=== PATIENT | female | born 1940 | race Caucasian/White ===

== ENCOUNTER 2016-11-19 20:13 | Emergency (ER) | payer OTHER ==
[~2016-11-19] VITALS: Ht 160 cm; Wt 101.3 kg
[~2016-11-19 20:13] MED LIST: ALPR0.25 PO; ATOR-24 PO; CETI10TA84 PO; CLX20 PO; COEN150C PO; MULT-845 PO; OMEGCAP2 PO; PANT40TA PO; TYLER650 PO; [UNRECOGNIZED DRUG - CODE] IM
[2016-11-19 20:25] VITALS: Ht 160 cm; Wt 101.3 kg
[2016-11-19] MEDS ORDERED: KETOROLAC TROMETHAMINE 30 MG/ML VIAL IV STA (20:46)
[2016-11-19] MEDS ORDERED: ACETAMINOPHEN 500 MG TAB PO STA (20:46)
[2016-11-19] MEDS ORDERED: ONDANSETRON INJ 2 MG/ML 2 ML VIAL IV STA (20:46)
[2016-11-19] MEDS ORDERED: DiphenhydrAMINE HCL 50 MG/ML VIAL IV STA (20:46)
[2016-11-19] MEDS ORDERED: PROCHLORPERAZINE 5 MG/ML 2 ML VIAL IV STA (20:46)
[2016-11-19] MEDS ORDERED: ALBUTEROL HFA 8 GM INHALER INH ONE (21:00)
--- NOTE | 2016-11-19 21:11 | DIAGNOSTIC IMAGING REPORT ---
CHEST ONE VIEW PORTABLE CLINICAL HISTORY: Evaluate Fever/Sepsis COMPARISON STUDY: 05/04/2011 FINDINGS: Potential parenchymal left lower lobe infiltrate. Lungs otherwise appear clear. Diaphragms smooth. Calcifications are sharp. IMPRESSION: Patchy parenchymal infiltrate left lower lobe. The above report was generated using voice recognition software. It may contain grammatical, syntax or spelling errors. Electronically signed by: Rai Perez M.D. 11/19/2016 9:10 PM Dictated Date/Time: 11/19/2016 9:10 PM
[2016-11-19] MEDS ORDERED: LEVOFLOXACIN 250 MG TAB PO STA (21:17)
[2016-11-19] MEDS ORDERED: TYLOTC500 PO (21:20)
[2016-11-19] MEDS ORDERED: FLUT0.15 NAE (21:28)
[2016-11-19 21:45] LABS: BASO % 0.3 %; BASO ABS # 0.02 K/uL (0-0.2); COMPLETE YES; EOS % 1.1 %; HEMATOCRIT 38.9 % (37-47); IG% 0.2 %; LYMPH ABS # 1.07 K/uL (1.2-3.4); MEAN CELL VOLUME 89.2 fL (80-100); MEAN CORPUSCULAR HEMOGLOBIN 30.3 pg (25-34); MEAN CORPUSCULAR HGB CONC 33.9 g/dl (32-36); MEAN PLATELET VOLUME 10.6 fL (7.4-10.4); MONO % 11.9 %; NEUT % 69.5 %; PLATELET COUNT 144 K/uL (130-400); RED BLOOD COUNT 4.36 M/uL (4.2-5.4); WHITE BLOOD COUNT 6.28 K/uL (4.8-10.8)
--- NOTE | 2016-11-19 21:45 | EMERGENCY ROOM VISIT NOTE ---
History Report prepared by Red: Diana Hernandez Under the Supervision of: Dr. Judd Carlisle M.D. First contact with patient: 20:34 Chief Complaint: VOMITING Stated Complaint: PAIN, COUGH, VOMITING History of Present Illness The patient is a 76 year old female who presents to the Emergency Room with complaints of an episode of vomiting starting today. The patient states that she felt fine yesterday. 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 The patient complains of headache, fever, ear pain, neck pain, watering eyes, cough, and sore throat. She notes her headache is worse when she coughs. The patient notes it is difficult to take a deep breath. She notes she took Tylenol 8 hours ago and 3 hours ago. She notes that she took a Mucinex DM this morning. The patient denies urinary symptoms, history of hypertension, and being out of the country recently. The patient notes she used to get headaches whenever she was ill. Source of History: patient Onset: today Position: other (global) Quality: other (global) Timing: other (episode) Modifying Factors (Worsening): breathing (deep), other (cough) Associated Symptoms: + fevers, + headache, + sorethroat, + cough, + neck pain, No urinary symptoms Note: The patient complains of ear pain and watering eyes. The patient denies a history of hypertension and being out of the country recently. Review of Systems See HPI for pertinent positives & negatives. A total of 10 systems reviewed and were otherwise negative. Past Medical & Surgical Medical Problems: (1) Chronic Kidney Disease, Stage Iii (Moderate) (2) Esophageal Reflux (3) Hyperlipidemia Nec/Nos (4) Lumbosacral Neuritis Nos (5) Sciatica Social History Problems: (1) Acq Spondylolisthesis (2) History Of Tobacco Use Family History No pertinent family history Social History Smoking Status: Never Smoker Alcohol Use: none Marital Status: Housing Status: lives with family Occupation Status: retired Current/Historical Medications Scheduled Atorvastatin (Lipitor), 40 MG PO QPM Cetirizine (Zyrtec), 10 MG PO QAM Citalopram (Celexa *), 40 MG PO HS Fluticasone Propionate (Nasal) (Flonase Allergy Relief), 2 SPRAYS JOSE DAILY Levofloxacin (Levaquin), 750 MG PO QD@08 Multiple Vitamins W/ Minerals (Centrum Silver Adult 50+), 1 TAB PO QAM [place]-3 Fatty Acids (Fish Oil), 2 CAP PO QAM Pantoprazole (Protonix), 40 MG PO QAM Scheduled PRN Acetaminophen (Tylenol Arthitis Ext Rel), 650 MG PO Q8H PRN for Pain Acetaminophen (Tylenol), 500 MG PO Q4H PRN for Pain Alprazolam (Xanax), 1 TAB PO DAILY PRN for Anxiety Epinephrine Hcl (Epinephrine Hcl), 1 DOSE IM DIRECTED PRN for ALLERGIC REACTION Promethazine Hcl (Phenergan), 25 MG PO Q6H PRN for Nausea Allergies Coded Allergies: BEE STING (Verified Allergy, Unknown, SHOCK, 11/19/16) Codeine (Verified Allergy, Unknown, ITCHY, 11/19/16) Morphine (Verified Adverse Reaction, Intermediate, abd pain, 11/19/16) Oxycodone (Verified Adverse Reaction, Unknown, ABDOMINAL PAIN, ITCHING, 11/19/16) Physical Exam Vital Signs Date Time Temp Pulse Resp B/P (MAP) Pulse Ox O2 Delivery O2 Flow Rate FiO2 11/19/16 22:59 84 18 171/84 96 Room Air 11/19/16 22:23 Room Air 11/19/16 20:25 37.7 92 20 193/106 95 Room Air Physical Exam GENERAL: Patient is in no acute distress. HEENT: No acute trauma, normocephalic atraumatic, mucous membranes moist, mild nasal congestion, no scleral icterus. No throat erythema. TMs are clear bilaterally. NECK: No stridor, no adenopathy, no meningismus, trachea is midline. LUNGS: Clear to auscultation bilaterally, no wheeze, no rhonchi, breath sounds equal. Dry cough. HEART: Without murmurs gallops or rubs, regular rate and rhythm. ABDOMEN: Soft, nontender, bowel sounds positive, no hernias, no peritonitis. EXTREMITIES: No cyanosis or edema, full range of motion of all the joints without pain or difficulty, no signs for acute trauma. NEUROLOGIC: Oriented x 3, no acute motor or sensory deficits, no focal weakness. SKIN: No rash, no jaundice, no diaphoresis. Medical Decision & Procedures ER Provider Diagnostic Interpretation: Radiology results as stated below per my review and radiologist interpretation: HEAD WITHOUT CONTRAST (CT) CT DOSE: 687.98 mGy.cm HISTORY: Pain headache TECHNIQUE: Multiaxial CT images of the head were performed without the use of intravenous contrast. A dose lowering technique was utilized adhering to the principles of ALARA. Comparison: None. Findings: Moderate mucosal thickening of the ethmoid sinuses. All remaining sinuses are clear. The calvarium and skull base are intact. The ventricles and sulci are within normal limits. There is no mass, hematoma, midline shift, or acute infarct. Impression: No acute intracranial abnormality. Moderate mucosal thickening of the ethmoid sinuses The above report was generated using voice recognition software. It may contain grammatical, syntax or spelling errors. Electronically signed by: Rai Perez M.D. 11/19/2016 9:45 PM Dictated Date/Time: 11/19/2016 9:44 PM CHEST ONE VIEW PORTABLE CLINICAL HISTORY: Evaluate Fever/Sepsis COMPARISON STUDY: 05/04/2011 FINDINGS: Potential parenchymal left lower lobe infiltrate. Lungs otherwise appear clear. Diaphragms smooth. Calcifications are sharp. IMPRESSION: Patchy parenchymal infiltrate left lower lobe. The above report was generated using voice recognition software. It may contain grammatical, syntax or spelling errors. Electronically signed by: Rai Perez M.D. 11/19/2016 9:10 PM Dictated Date/Time: 11/19/2016 9:10 PM Laboratory Results 11/19/16 21:13 Red Blood Count 4.36, Mean Corpuscular Volume 89.2, Mean Corpuscular Hemoglobin 30.3, Mean Corpuscular Hemoglobin Concent 33.9, Mean Platelet Volume 10.6, Neutrophils (%) (Auto) 69.5, Lymphocytes (%) (Auto) 17.0, Monocytes (%) (Auto) 11.9, Eosinophils (%) (Auto) 1.1, Basophils (%) (Auto) 0.3, Neutrophils # (Auto ) 4.36, Lymphocytes # (Auto) 1.07, Monocytes # (Auto) 0.75, Eosinophils # (Auto ) 0.07, Basophils # (Auto) 0.02 11/19/16 21:13 Test 11/19/16 21:13 White Blood Count 6.28 K/uL (4.8-10.8) Red Blood Count 4.36 M/uL (4.2-5.4) Hemoglobin 13.2 g/dL (12.0-16.0) Hematocrit 38.9 % (37-47) Mean Corpuscular Volume 89.2 fL (80-100) Mean Corpuscular Hemoglobin 30.3 pg (25-34) Mean Corpuscular Hemoglobin Concent 33.9 g/dl (32-36) Platelet Count 144 K/uL (130-400) Mean Platelet Volume 10.6 fL (7.4-10.4) Neutrophils (%) (Auto) 69.5 % Lymphocytes (%) (Auto) 17.0 % Monocytes (%) (Auto) 11.9 % Eosinophils (%) (Auto) 1.1 % Basophils (%) (Auto) 0.3 % Neutrophils # (Auto) 4.36 K/uL (1.4-6.5) Lymphocytes # (Auto) 1.07 K/uL (1.2-3.4) Monocytes # (Auto) 0.75 K/uL (0.11-0.59) Eosinophils # (Auto) 0.07 K/uL (0-0.5) Basophils # (Auto) 0.02 K/uL (0-0.2) RDW Standard Deviation 41.6 fL (36.4-46.3) RDW Coefficient of Variation 12.9 % (11.5-14.5) Immature Granulocyte % (Auto) 0.2 % Immature Granulocyte # (Auto) 0.01 K/uL (0.00-0.02) Anion Gap 8.0 mmol/L (3-11) Est Creatinine Clear Calc Drug Dose 63.5 ml/min Estimated GFR () 75.5 Estimated GFR (Non- 65.2 BUN/Creatinine Ratio 25.5 (10-20) Lactic Acid Level 0.8 mmol/L (0.4-2.0) Calcium Level 9.3 mg/dl (8.5-10.1) Total Bilirubin 0.6 mg/dl (0.2-1) Aspartate Amino Transf (AST/SGOT) 25 U/L (15-37) Alanine Aminotransferase (ALT/SGPT) 26 U/L (12-78) Alkaline Phosphatase 81 U/L (45-117) Total Protein 7.3 gm/dl (6.4-8.2) Albumin 3.8 gm/dl (3.4-5.0) Globulin 3.5 gm/dl (2.5-4.0) Albumin/Globulin Ratio 1.1 (0.9-2) Laboratory results reviewed by me. Medications Administered Medications (Trade) Dose Ordered Sig/Brenda Route Start Time Stop Time Status Last Admin Dose Admin Ondansetron HCl (Zofran Inj) 4 mg NOW STAT IV 11/19/16 20:46 11/19/16 20:50 DC 11/19/16 21:07 4 MG Ketorolac Tromethamine (Toradol Inj) 30 mg NOW STAT IV 11/19/16 20:46 11/19/16 20:50 DC 11/19/16 21:08 30 MG Acetaminophen (Tylenol Tab) 1,000 mg NOW STAT PO 11/19/16 20:46 11/19/16 20:50 DC 11/19/16 21:08 1,000 MG Prochlorperazine Edisylate (Compazine Inj) 5 mg NOW STAT IV 11/19/16 20:46 11/19/16 20:50 DC 11/19/16 21:07 5 MG Diphenhydramine HCl (Benadryl Inj) 25 mg NOW STAT IV 11/19/16 20:46 11/19/16 20:50 DC 11/19/16 21:07 25 MG Albuterol (Ventolin Hfa Inhaler) 3 puffs NOW ONCE INH 11/19/16 21:00 11/19/16 21:01 DC 11/19/16 21:08 3 PUFFS Levofloxacin (Levaquin Tab) 750 mg NOW STAT PO 11/19/16 21:17 11/19/16 21:18 DC 11/19/16 21:17 750 MG ED Course 2044: The patient was evaluated in room C4. A complete history and physical exam was performed. 2045: Ordered Benadryl Inj 25 mg IV, Compazine Inj 5 mg IV, Tylenol Tab 1000 mg PO, Toradol Inj 30 mg IV, Zofran Inj 4 mg IV. 2099: Ordered Albuterol 3 puffs INH. 2116: Ordered Levofloxacin 750 mg PO. 2307: Reevaluated the patient. Discussed results and discharge instructions: she verbalized understanding and agreement. The patient is ready for discharge. Medical Decision Differential diagnoses include bronchitis, pneumonia, meningitis, dehydration, pharyngitis, otitis media, viral illness, intracranial bleeding. There is no leukocytosis or concerning anemia. No significant electrolyte abnormality, kidney failure or hepatitis. Lactic acid level is not elevated making sepsis less likely. Blood cultures are pending. Brain CT shows no acute bleed or mass effect. Chest x-ray shows a potential left lower lobe infiltrate. On exam, the patient did not have meningismus, she was not toxic or hypoxic. The patient received oral Tylenol, IV Toradol. She received IV saline. She was given IV Compazine and IV Benadryl. She received IV Zofran and a dose of oral Levaquin. The patient was given albuterol via MDI. The patient feels markedly better. I do think she can be discharged. I think this pneumonia has caused all her symptoms. The headache is from the illness itself and from her coughing. The patient's blood pressure was elevated here, it did come down somewhat when her symptoms were controlled. She is going to follow with her doctors office for a blood pressure recheck. The patient was encouraged to return if feeling worse. She was discharged in stable condition. Medication Reconcilliation Current Medication List: was personally reviewed by me Blood Pressure Screening Patient's blood pressure: Elevated blood pressure Blood pressure disposition: Referred to PCP Impression Primary Impression: Pneumonia Additional Impressions: Headache Vomiting Scribe Attestation The scribe's documentation has been prepared under my direction and personally reviewed by me in its entirety. I confirm that the note above accurately reflects all work, treatment, procedures, and medical decision making performed by me. Departure Information Dispostion Home / Self-Care Prescriptions Promethazine Hcl (Phenergan) 25 Mg Tab 25 MG PO Q6H Y for Nausea, #15 TAB Prov: Judd Carlisle M.D. 11/19/16 Levofloxacin (Levaquin) 750 Mg Tab 750 MG PO QD@08, #5 TAB Prov: Judd Carlisle M.D. 11/19/16 Referrals Carmelina Shelley D.O. (PCP) Forms HOME CARE DOCUMENTATION FORM, IMPORTANT VISIT INFORMATION Patient Instructions My [facility] [address] Additional Instructions levaquin daily for 5 more days phenergan 1 tab as needed for nausea every 6 hours albuterol 3 puffs every 6 hours for the cough and breathing rest fluids tylenol and or motrin for fever and pain see alcides nur this week for recheck and blood pressure recheck return if worsening or not improving as we discussed Problem Qualifiers
[2016-11-19 21:54] LABS: BUN/CREATININE RATIO 25.5 (10-20); CALCIUM 9.3 mg/dl (8.5-10.1); CREATININE 0.87 mg/dl (0.60-1.20); POTASSIUM 3.8 mmol/L (3.5-5.1)
[2016-11-19 21:56] LABS: ALB/GLOB RATIO 1.1 (0.9-2)
[2016-11-19] MEDS ORDERED: PROM25TA9 PO (23:15)
[2016-11-19] MEDS ORDERED: LEVO1TAB35 PO (23:15)
[2016-11-19 23:41] VITALS: BP 155/86; PULSE 84; TEMP 37.1; O2SAT 98
[2016-12-08] MEDS ORDERED: DXY100 PO (10:50)
[2016-12-08] MEDS ORDERED: PRED10TA PO (10:50)
== END 2016-11-19 23:42 | disposition home or self-care (01) ==
LOC: C.EDB 20:14 → C.EDC 23:42
DX: J18.9 Pneumonia, unspecified organism (principal); R51 Headache; R11.10 Vomiting, unspecified; E78.5 Hyperlipidemia, unspecified; N18.3 Chronic kidney disease, stage 3 (moderate); K21.9 Gastro-esophageal reflux disease without esophagitis; Z87.891 Personal history of nicotine dependence; Z79.899 Other long term (current) drug therapy; Z88.5 Allergy status to narcotic agent; Z91.030 Bee allergy status

== ENCOUNTER 2016-12-05 12:34 | Inpatient (IN) | payer OTHER ==
[2016-12-05] VITALS (7 sets, daily range): BP systolic 123–144; BP diastolic 64–80; PULSE 75–84; TEMP 36.5–36.9; O2SAT 94–96; Ht 160 cm; Wt 74.3 kg
[~2016-12-05] VITALS: Ht 160 cm; Wt 74.3 kg
[~2016-12-05 12:34] MED LIST changes: -COEN150C PO; +FLUT0.15 NAE; +LEVO1TAB35 PO; +PROM25TA9 PO; +TYLOTC500 PO
[2016-12-05] MEDS ORDERED: SODIUM CHLORIDE 0.9% 1000ML 1,000 ML IV STA (12:52)
[2016-12-05] MEDS ORDERED: CITA40TA12 PO (13:04)
[2016-12-05] MEDS ORDERED: PRED10TA PO (13:06)
[2016-12-05] MEDS ORDERED: ALBUT/IPRATROP 3MG/0.5MG NEB 3 ML VIAL INH STA ×2 (13:23→14:48)
[2016-12-05 13:48] LABS: BASO % 0.2 %; BASO ABS # 0.03 K/uL (0-0.2); COMPLETE YES; EOS % 4.6 %; HEMATOCRIT 42.2 % (37-47); IG% 0.3 %; LYMPH % 29.4 %; LYMPH ABS # 3.73 K/uL (1.2-3.4); MEAN CELL VOLUME 90.4 fL (80-100); MEAN CORPUSCULAR HEMOGLOBIN 30.6 pg (25-34); MEAN CORPUSCULAR HGB CONC 33.9 g/dl (32-36); MEAN PLATELET VOLUME 10.7 fL (7.4-10.4); MONO % 10.4 %; NEUT % 55.1 %; PLATELET COUNT 218 K/uL (130-400); RED BLOOD COUNT 4.67 M/uL (4.2-5.4)
--- NOTE | 2016-12-05 13:55 | DIAGNOSTIC IMAGING REPORT ---
CHEST ONE VIEW PORTABLE CLINICAL HISTORY: EVALUATE WEAKNESS dyspnea COMPARISON STUDY: 11/19/2016 FINDINGS: The bones soft tissues and hemidiaphragms are normal. The cardiomediastinal silhouette is normal. The lungs are clear. The pulmonary vasculature is normal. Lungs are now considered clear. Infiltrate left base has resolved. IMPRESSION: Negative chest. The lungs are clear. The above report was generated using voice recognition software. It may contain grammatical, syntax or spelling errors. Electronically signed by: Rai Perez M.D. 12/05/2016 1:54 PM Dictated Date/Time: 12/05/2016 1:53 PM
[2016-12-05 13:57] LABS: PARTIAL THROMBOPLASTIN RATIO 0.9; PROTHROMBIN TIME (PATIENT) 10.3 SECONDS (9.0-12.0)
[2016-12-05 14:06] LABS: ALT/SGPT 25 U/L (12-78); AST/SGOT 16 U/L (15-37); BLOOD UREA NITROGEN 28 mg/dl (7-18); BUN/CREATININE RATIO 21.9 (10-20); CALCIUM 9.3 mg/dl (8.5-10.1); CARBON DIOXIDE 30 mmol/L (21-32); CHLORIDE 105 mmol/L (98-107); GLUCOSE 97 mg/dl (70-99); SODIUM 142 mmol/L (136-145)
[2016-12-05 14:17] LABS: ALKALINE PHOSPHATASE 76 U/L (45-117); CKMB/CK RATIO 1.9 (0-3.0)
[2016-12-05] MEDS ORDERED: DOXYCYCLINE IV 100 MG in DEXTROSE 5% 100ML 100 ML IV STA (14:48)
[2016-12-05] MEDS ORDERED: METHYLPREDNISOLONE 125 MG VIAL IV STA (14:48)
--- NOTE | 2016-12-05 15:19 | EMERGENCY ROOM VISIT NOTE ---
History Report prepared by Red: Michelle Parikh Under the Supervision of: Dr. Arnold Pearce M.D. First contact with patient: 12:52 Chief Complaint: PALPITATIONS Stated Complaint: HEART PALPITATIONS History of Present Illness The patient is a 76 year old female who presents to the Emergency Room with complaints of persistent heart palpitations that began three days ago. The patient reports that on November 19 she was diagnosed with pneumonia, noting that she was placed on antibiotics, a nebulizer, and Prednisone for her symptoms. She states that she stopped the nebulizer treatments because they made her feel wired. The patient states that she currently feels like she has a buzz. She additionally associates shortness of breath, wheezing, and a cough today, but states that her shortness of breath has slightly improved. The patient states that her breathing is still labored. She states that she quit smoking in the . Pt denies LOC, headache, fevers, chills, diaphoresis, visual changes, neck pain, chest pain, nausea, vomiting, abdominal pain, back pain, melena, hematochezia, urinary symptoms, numbness, weakness, lymphadenopathy, rash, or other complaints. Source of History: patient Onset: three days ago Position: other (heart) Quality: other (palpitations) Timing: other (persistent) Associated Symptoms: + cough, + SOB Note: Associated Symptoms: wheezing Review of Systems See HPI for pertinent positives and negatives. A total of ten systems were reviewed and were otherwise negative. Past Medical & Surgical Medical Problems: (1) Chronic Kidney Disease, Stage Iii (Moderate) (2) Esophageal Reflux (3) Hyperlipidemia Nec/Nos (4) Lumbosacral Neuritis Nos (5) Sciatica Social History Problems: (1) Acq Spondylolisthesis (2) History Of Tobacco Use Family History No pertinent family history Social History Smoking Status: Former Smoker Alcohol Use: none Marital Status: Housing Status: lives with family Occupation Status: retired Current/Historical Medications Scheduled Atorvastatin (Lipitor), 40 MG PO QPM Cetirizine (Zyrtec), 10 MG PO QAM Citalopram Hydrobromide (Celexa), 40 MG PO DAILY Fluticasone Propionate (Nasal) (Flonase Allergy Relief), 2 SPRAYS JOSE DAILY Multiple Vitamins W/ Minerals (Centrum Silver Adult 50+), 1 TAB PO QAM [place]-3 Fatty Acids (Fish Oil), 2 CAP PO QAM Pantoprazole (Protonix), 40 MG PO QAM Prednisone Tab (Prednisone), 10 MG PO UD Scheduled PRN Acetaminophen (Tylenol Arthitis Ext Rel), 650 MG PO QAM PRN for Pain Acetaminophen (Tylenol), 500 MG PO HS PRN for Pain Alprazolam (Xanax), 1 TAB PO DAILY PRN for Anxiety Epinephrine Hcl (Epinephrine Hcl), 1 DOSE IM DIRECTED PRN for ALLERGIC REACTION Allergies Coded Allergies: BEE STING (Verified Allergy, Unknown, SHOCK, 12/05/16) Codeine (Verified Allergy, Unknown, ITCHY, 12/05/16) Morphine (Verified Adverse Reaction, Intermediate, abd pain, 12/05/16) Oxycodone (Verified Adverse Reaction, Unknown, ABDOMINAL PAIN, ITCHING, ) Physical Exam Vital Signs Date Time Temp Pulse Resp B/P (MAP) Pulse Ox O2 Delivery O2 Flow Rate FiO2 12/05/16 15:01 89 Room Air 12/05/16 14:19 72 20 113/55 92 Room Air 12/05/16 12:54 97 Room Air 12/05/16 12:48 104 12/05/16 12:45 97 Room Air 12/05/16 12:38 37.1 86 22 125/80 96 Room Air Physical Exam GENERAL: Awake, alert, well-appearing, in no distress HENT: Normocephalic, atraumatic. Oropharynx unremarkable. EYES: Normal conjunctiva. Sclera non-icteric. NECK: Supple. No nuchal rigidity. FROM. No JVD. RESPIRATORY: Rhonchi and a few wheezes bilaterally. Frequent cough present. CARDIAC: Regular rate, normal rhythm. Extremities warm and well perfused. Pulses equal. ABDOMEN: Soft, non-distended. No tenderness to palpation. No rebound or guarding. No masses. RECTAL: Deferred. MUSCULOSKELETAL: Chest examination reveals no tenderness. The back is symmetrical on inspection without obvious abnormality. There is no CVA tenderness to palpation. No joint edema. LOWER EXTREMITIES: Calves are equal size bilaterally and non-tender. No edema. No discoloration. NEURO: Normal sensorium. No sensory or motor deficits noted. SKIN: No rash or jaundice noted. Medical Decision & Procedures ER Provider Diagnostic Interpretation: X-ray: Per my interpretation, radiologist review. CHEST ONE VIEW PORTABLE CLINICAL HISTORY: EVALUATE WEAKNESS dyspnea COMPARISON STUDY: 11/19/2016 FINDINGS: The bones soft tissues and hemidiaphragms are normal. The cardiomediastinal silhouette is normal. The lungs are clear. The pulmonary vasculature is normal. Lungs are now considered clear. Infiltrate left base has resolved. IMPRESSION: Negative chest. The lungs are clear. The above report was generated using voice recognition software. It may contain grammatical, syntax or spelling errors. Electronically signed by: Rai Perez M.D. 12/05/2016 1:54 PM Dictated Date/Time: 12/05/2016 1:53 PM Laboratory Results 12/05/16 13:30 Red Blood Count 4.67, Mean Corpuscular Volume 90.4, Mean Corpuscular Hemoglobin 30.6, Mean Corpuscular Hemoglobin Concent 33.9, Mean Platelet Volume 10.7, Neutrophils (%) (Auto) 55.1, Lymphocytes (%) (Auto) 29.4, Monocytes (%) (Auto) 10.4, Eosinophils (%) (Auto) 4.6, Basophils (%) (Auto) 0.2, Neutrophils # (Auto ) 6.99, Lymphocytes # (Auto) 3.73, Monocytes # (Auto) 1.32, Eosinophils # (Auto ) 0.59, Basophils # (Auto) 0.03 12/05/16 13:30 Test 12/05/16 13:30 12/05/16 13:41 White Blood Count 12.70 K/uL (4.8-10.8) Red Blood Count 4.67 M/uL (4.2-5.4) Hemoglobin 14.3 g/dL (12.0-16.0) Hematocrit 42.2 % (37-47) Mean Corpuscular Volume 90.4 fL (80-100) Mean Corpuscular Hemoglobin 30.6 pg (25-34) Mean Corpuscular Hemoglobin Concent 33.9 g/dl (32-36) Platelet Count 218 K/uL (130-400) Mean Platelet Volume 10.7 fL (7.4-10.4) Neutrophils (%) (Auto) 55.1 % Lymphocytes (%) (Auto) 29.4 % Monocytes (%) (Auto) 10.4 % Eosinophils (%) (Auto) 4.6 % Basophils (%) (Auto) 0.2 % Neutrophils # (Auto) 6.99 K/uL (1.4-6.5) Lymphocytes # (Auto) 3.73 K/uL (1.2-3.4) Monocytes # (Auto) 1.32 K/uL (0.11-0.59) Eosinophils # (Auto) 0.59 K/uL (0-0.5) Basophils # (Auto) 0.03 K/uL (0-0.2) RDW Standard Deviation 43.9 fL (36.4-46.3) RDW Coefficient of Variation 13.5 % (11.5-14.5) Immature Granulocyte % (Auto) 0.3 % Immature Granulocyte # (Auto) 0.04 K/uL (0.00-0.02) Prothrombin Time 10.3 SECONDS (9.0-12.0) Prothromb Time International Ratio 1.0 (0.9-1.1) Activated Partial Thromboplast Time 23.2 SECONDS (21.0-31.0) Partial Thromboplastin Ratio 0.9 Anion Gap 7.0 mmol/L (3-11) Est Creatinine Clear Calc Drug Dose 42.2 ml/min Estimated GFR () 46.5 Estimated GFR (Non- 40.1 BUN/Creatinine Ratio 21.9 (10-20) Calcium Level 9.3 mg/dl (8.5-10.1) Magnesium Level 2.0 mg/dl (1.8-2.4) Total Bilirubin 0.7 mg/dl (0.2-1) Direct Bilirubin < 0.1 mg/dl (0-0.2) Aspartate Amino Transf (AST/SGOT) 16 U/L (15-37) Alanine Aminotransferase (ALT/SGPT) 25 U/L (12-78) Alkaline Phosphatase 76 U/L (45-117) Total Creatine Kinase 53 U/L (26-192) Creatine Kinase MB 1.0 ng/ml (0.5-3.6) Creatine Kinase MB Ratio 1.9 (0-3.0) Troponin I < 0.015 ng/ml (0-0.045) Total Protein 7.1 gm/dl (6.4-8.2) Albumin 3.7 gm/dl (3.4-5.0) Thyroid Stimulating Hormone (TSH) 1.130 uIu/ml (0.300-4.500) Bedside Lactic Acid Venous 0.97 mmol/L (0.90-1.70) Laboratory results reviewed by me Medications Administered Medications (Trade) Dose Ordered Sig/Brenda Route Start Time Stop Time Status Last Admin Dose Admin Sodium Chloride 1,000 ml @ 125 mls/hr Q8H STAT IV 12/05/16 12:52 12/05/16 20:51 12/05/16 14:01 125 MLS/HR Albuterol/ Ipratropium (Duoneb) 3 ml NOW STAT INH 12/05/16 13:23 12/05/16 13:24 DC 12/05/16 14:02 3 ML Albuterol/ Ipratropium (Duoneb) 3 ml NOW STAT INH 12/05/16 14:48 12/05/16 14:56 DC 12/05/16 15:03 3 ML Doxycycline Hyclate 100 mg/ Dextrose 110 ml @ 50 mls/hr NOW STAT IV 12/05/16 14:48 12/05/16 16:59 12/05/16 15:12 50 MLS/HR Methylprednisolone Sodium Succinate (Solu-Medrol IV) 125 mg NOW STAT IV 12/05/16 14:48 12/05/16 14:56 DC 12/05/16 15:03 125 MG ECG Indication: palpitations Rate (beats per minute): 88 Rhythm: normal sinus Findings: Q waves (Inferior), no acute ischemic change, no ectopy ED Course 1252: Ordered Sodium Chloride 1000 mL @ 125 mls/hr IV. 1317: The patient was evaluated in room C12B. A complete history and physical exam was performed. 1323: Ordered DuoNeb 3 ml INH. 1406: I reevaluated the patient and she is feeling slightly feeling better after the breathing treatment. 1500: The patient was evaluated again. Her cough. Present. She was found to have mild hypoxia. She had oxygen initiated, IV doxycycline, IV Solu-Medrol, and a second DuoNeb ordered. I discussed further evaluation and management in the hospital.I gave my usual and customary discussion regarding this issue. 1504: Consulted with internal medicine 1513: Discussed the case with Ousmane Rivas PA-C Medical Decision Triage Nursing notes reviewed. The patient's presentation and history were concerning for respiratory symptoms. Etiologies such as pneumonia, COPD, reactive airway disease, CHF, cardiac ischemia, pulmonary embolism, pneumothorax, musculoskeletal, infections, gastrointestinal, as well as others were entertained. Patient was evaluated. She had a heavy cough present. She had rhonchi on examination. The patient had an IV established. Blood work was obtained. ECG did not show any ischemic issues cardiac monitoring did not reveal any significant ectopy or dysrhythmia. Her CBC showed mild leukocytosis. Chemistry panel was unremarkable. Cardiac markers negative. Her chest x-ray seemed to be somewhat improved compared to prior. On reassessment the patient was still feeling about the same. The patient was educated. She does not use oxygen at home. She has had a mild hypoxia noted. Supplemental oxygen was given. The patient had a second nebulizer treatment and a dose of Solu-Medrol given. IV doxycycline administered. The patient had a consultation placed with internal medicine. The patient was evaluated by the hospitalist service for further management. Medication Reconcilliation Current Medication List: was personally reviewed by me Blood Pressure Screening Patient's blood pressure: Elevated blood pressure Blood pressure disposition: Elevated BP felt to be situational, Did not require urgent referral Consults Time Called: 1504 Consulting Physician: Di Rivas PA-C Returned Call: [phone] Discussed case of the patient's history and physical and findings. She is failing outpatient management. The patient will be evaluated for further management by the hospitalist service. Impression Primary Impression: Cough Additional Impression: Shortness of breath Scribe Attestation The scribe's documentation has been prepared under my direction and personally reviewed by me in its entirety. I confirm that the note above accurately reflects all work, treatment, procedures, and medical decision making performed by me. Departure Information Dispostion Being Evaluated By Hospitalist Referrals Carmelina Shelley D.O. (PCP) Patient Instructions My [facility] Problem Qualifiers
[2016-12-05] MEDS ORDERED: ACETAMINOPHEN 650 MG PO PRN (17:00)
--- NOTE | 2016-12-05 17:04 | History and Physical ---
History & Physical Date & Time of Service: Dec 05, 2016 at 17:04 Chief Complaint: Cough,Sob Primary Care Physician: Carmelina Shelley D.O. 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 -mentions of a lot of sick contacts with children with URI symptom denies of any chest pain , having episodes of palpitation with duo neb tx Family History No pertinent family history Social History Smoking Status: Former Smoker Marital Status: Housing status: lives alone Occupational Status: retired Immunizations History of Influenza Vaccine: Yes History of Tetanus Vaccine?: Yes History of Pneumococcal: No History of Hepatitis B Vaccine: No Allergies Coded Allergies: BEE STING (Verified Allergy, Unknown, SHOCK, 12/05/16) Codeine (Verified Allergy, Unknown, ITCHY, 12/05/16) Morphine (Verified Adverse Reaction, Intermediate, abd pain, 12/05/16) Oxycodone (Verified Adverse Reaction, Unknown, ABDOMINAL PAIN, ITCHING, ) Home Medications Scheduled Atorvastatin (Lipitor), 40 MG PO QPM Cetirizine (Zyrtec), 10 MG PO QAM Citalopram Hydrobromide (Celexa), 40 MG PO DAILY Fluticasone Propionate (Nasal) (Flonase Allergy Relief), 2 SPRAYS JOSE DAILY Multiple Vitamins W/ Minerals (Centrum Silver Adult 50+), 1 TAB PO QAM Wheeler-3 Fatty Acids (Fish Oil), 2 CAP PO QAM Pantoprazole (Protonix), 40 MG PO QAM Prednisone Tab (Prednisone), 10 MG PO UD Scheduled PRN Acetaminophen (Tylenol Arthitis Ext Rel), 650 MG PO QAM PRN for Pain Acetaminophen (Tylenol), 500 MG PO HS PRN for Pain Alprazolam (Xanax), 1 TAB PO DAILY PRN for Anxiety Epinephrine Hcl (Epinephrine Hcl), 1 DOSE IM DIRECTED PRN for ALLERGIC REACTION Review of Systems Constitutional: + fever, + chills, + sweats, + weakness, + fatigue Respiratory: + cough, + sputum, + shortness of breath, + dyspnea on exertion, + dyspnea at rest Musculoskeletal: + muscle pain Neurologic: + weakness, + numbness/tingling Endocrine: + fatigue Physical Exam Vital Signs Date Time Temp Pulse Resp B/P (MAP) Pulse Ox O2 Delivery O2 Flow Rate FiO2 12/05/16 16:13 37.1 85 18 116/54 98 12/05/16 15:59 85 18 116/54 98 Nasal Cannula 2.0 12/05/16 15:26 98 Nasal Cannula 2.0 12/05/16 15:01 89 Room Air 12/05/16 14:19 72 20 113/55 92 Room Air 12/05/16 12:54 97 Room Air 12/05/16 12:48 104 12/05/16 12:45 97 Room Air 12/05/16 12:38 37.1 86 22 125/80 96 Room Air General Appearance: no apparent distress Neck: supple, no JVD Respiratory/Chest: no respiratory distress, + decreased breath sounds Cardiovascular: regular rate, rhythm, no edema Abdomen/GI: normal bowel sounds, non tender, soft Back: no CVA tenderness Extremities/Musculoskelatal: normal capillary refill, no pedal edema Neurologic/Psych: alert, normal mood/affect Skin: normal color, warm/dry, no rash Diagnostics Laboratory Results Results Past 24 Hours Test 12/05/16 13:30 12/05/16 13:41 Range/Units White Blood Count 12.70 4.8-10.8 K/uL Red Blood Count 4.67 4.2-5.4 M/uL Hemoglobin 14.3 12.0-16.0 g/dL Hematocrit 42.2 37-47 % Mean Corpuscular Volume 90.4 80-100 fL Mean Corpuscular Hemoglobin 30.6 25-34 pg Mean Corpuscular Hemoglobin Concent 33.9 32-36 g/dl Platelet Count 218 130-400 K/uL Mean Platelet Volume 10.7 7.4-10.4 fL Neutrophils (%) (Auto) 55.1 % Lymphocytes (%) (Auto) 29.4 % Monocytes (%) (Auto) 10.4 % Eosinophils (%) (Auto) 4.6 % Basophils (%) (Auto) 0.2 % Neutrophils # (Auto) 6.99 1.4-6.5 K/uL Lymphocytes # (Auto) 3.73 1.2-3.4 K/uL Monocytes # (Auto) 1.32 0.11-0.59 K/uL Eosinophils # (Auto) 0.59 0-0.5 K/uL Basophils # (Auto) 0.03 0-0.2 K/uL RDW Standard Deviation 43.9 36.4-46.3 fL RDW Coefficient of Variation 13.5 11.5-14.5 % Immature Granulocyte % (Auto) 0.3 % Immature Granulocyte # (Auto) 0.04 0.00-0.02 K/uL Prothrombin Time 10.3 9.0-12.0 SECONDS Prothromb Time International Ratio 1.0 0.9-1.1 Activated Partial Thromboplast Time 23.2 21.0-31.0 SECONDS Partial Thromboplastin Ratio 0.9 Sodium Level 142 136-145 mmol/L Potassium Level 4.0 3.5-5.1 mmol/L Chloride Level 105 98-107 mmol/L Carbon Dioxide Level 30 21-32 mmol/L Anion Gap 7.0 3-11 mmol/L Blood Urea Nitrogen 28 7-18 mg/dl Creatinine 1.30 0.60-1.20 mg/dl Est Creatinine Clear Calc Drug Dose 42.2 ml/min Estimated GFR () 46.5 Estimated GFR (Non- 40.1 BUN/Creatinine Ratio 21.9 10-20 Random Glucose 97 70-99 mg/dl Calcium Level 9.3 8.5-10.1 mg/dl Magnesium Level 2.0 1.8-2.4 mg/dl Total Bilirubin 0.7 0.2-1 mg/dl Direct Bilirubin < 0.1 0-0.2 mg/dl Aspartate Amino Transf (AST/SGOT) 16 15-37 U/L Alanine Aminotransferase (ALT/SGPT) 25 12-78 U/L Alkaline Phosphatase 76 45-117 U/L Total Creatine Kinase 53 26-192 U/L Creatine Kinase MB 1.0 0.5-3.6 ng/ml Creatine Kinase MB Ratio 1.9 0-3.0 Troponin I < 0.015 0-0.045 ng/ml Total Protein 7.1 6.4-8.2 gm/dl Albumin 3.7 3.4-5.0 gm/dl Thyroid Stimulating Hormone (TSH) 1.130 0.300-4.500 uIu/ml Bedside Lactic Acid Venous 0.97 0.90-1.70 mmol/L Microbiology Results 12/05/16 Blood Culture, Received Pending 12/05/16 Blood Culture, Received Pending CXR normal Normal EKG Impression Assessment and Plan COPD EXACERBATION : presented with ongoing symptom of cough , SOB , weakness for > 2 weeks failed out pt tx Cxray shows no infiltrate , ordered for Flu titer SOB now much better after neb tx and IV steroids plan to transition to PO Prednisone as no audible wheeze noted monitor requiring supplemental 02 ( was not on home 02 ) on empiric Abx with Doxycycline Neb tx changed to Xoponex as pt mentions of feeling jittery /palpitation with duo neb tx pulmonology eval requested BOBY : cr elevated 1.3 ( was 0.9 on 11/19/16 ) due to dehydration , poor PO intake ordered for IVF NSS @100 repeat PRP in AM avoid NSAID's FULL CODE DVT PROPHYLAXIS : sub q heparin DISPOSITION : expected to be discharged home when medically stable Level of Care Med/Surg Resuscitation Status FULL RESUSCITATION VTE Prophylaxis VTE Risk Assessment Done? Y/N: Yes Risk Level: Moderate Given or contraindicated: Unfractionated heparin SQ Additional Copies To Carmelina Shelley D.O.
[2016-12-05] MEDS ORDERED: MAGNESIUM HYDROXIDE SUSP 30 ML UDC PO PRN (17:15)
[2016-12-05] MEDS ORDERED: ZOLPIDEM TARTRATE 5 MG TAB PO PRN (17:15)
[2016-12-05] MEDS ORDERED: ALUMINUM/MAGNESIUM/SIMETH (MAALOX MAX) 30 ML UDC PO PRN (17:15)
[2016-12-05] MEDS ORDERED: POLYETHYLENE (MIRALAX) 17 GM PACK PO PRN (17:15)
[2016-12-05] MEDS ORDERED: ONDANSETRON INJ 2 MG/ML 2 ML VIAL IV PRN (17:15)
[2016-12-05] MEDS ORDERED: ALBUT/IPRATROP 3MG/0.5MG NEB 3 ML VIAL INH PRN (17:30)
[2016-12-05] MEDS: SODIUM CHLORIDE 0.9% 1000ML 1,000 ML IV SCH (18:13)
[2016-12-05] MEDS ORDERED: ALBUT/IPRATROP 3MG/0.5MG NEB 3 ML VIAL INH SCH (20:00)
[2016-12-05] MEDS ORDERED: INFLUENZA ADMINISTRATION CHARGE ONE (20:30)
[2016-12-05] MEDS ORDERED: INFLUENZA VACCINE HIGH DOSE 65+ 0.5 ML SYR IM. ONE (20:30)
[2016-12-05] MEDS: ATORVASTATIN 40 MG TAB PO SCH (21:41)
[2016-12-05] MEDS: HEPARIN SOD 5000 UNIT/0.5 ML CARP SQ SCH (21:44)
[2016-12-05] MEDS ORDERED: METHYLPREDNISOLONE IV 40 MG in SYRINGE 0 ML IV SCH (22:00)
[2016-12-05] MEDS ORDERED: LORAZEPAM 0.5 MG TAB PO PRN (22:15)
[2016-12-05] MEDS: ACETAMINOPHEN 325 MG TAB PO PRN (23:39)
[2016-12-06] VITALS (12 sets, daily range): BP systolic 138–160; BP diastolic 73–86; PULSE 77–103; TEMP 36.5–36.7; O2SAT 92–98
[2016-12-06] MEDS ORDERED: LEVALBUTEROL/IPRATROPIUM NEB INH SCH
[2016-12-06] MEDS: LEVALBUTEROL 1.25MG/0.5ML NEB INH SCH ×4 (01:41→19:46)
[2016-12-06] MEDS: IPRATROPIUM BROMIDE NEB SOLN 0.02% 2.5 ML VIAL INH SCH ×4 (01:41→19:46)
[2016-12-06] MEDS: SODIUM CHLORIDE 0.9% 1000ML 1,000 ML IV SCH (03:30)
[2016-12-06] MEDS: ALPRAZOLAM 0.25 MG TAB PO PRN (03:30)
[2016-12-06] MEDS: ACETAMINOPHEN 325 MG TAB PO PRN ×3 (03:33→21:32)
[2016-12-06] MEDS: DOXYCYCLINE IV 100 MG in DEXTROSE 5% 100ML 100 ML IV SCH ×2 (03:52→15:33)
[2016-12-06] MEDS: HEPARIN SOD 5000 UNIT/0.5 ML CARP SQ SCH ×3 (05:48→21:43)
[2016-12-06] MEDS: FLUTICASONE PROPIONATE NA SPR 16 GM BTL SCH (08:46)
[2016-12-06] MEDS: CEROVITE ADV FORMULA TAB PO SCH (08:47)
[2016-12-06] MEDS: PANTOprazole SOD 40 MG TAB PO SCH (08:47)
[2016-12-06] MEDS: CITALOPRAM 40 MG TAB PO SCH (08:48)
[2016-12-06] MEDS: CETIRIZINE HCL 10 MG TAB PO SCH (08:48)
[2016-12-06] MEDS: OMEGA-3 (PURIFIED FISH OIL) 1 GM CAP PO SCH (08:48)
[2016-12-06] MEDS: FLUTICASONE PROPIONATE NA SPR 16 GM BTL NAE SCH (09:00)
[2016-12-06 10:08] LABS: HEMATOCRIT 38.9 % (37-47); MEAN CELL VOLUME 89.4 fL (80-100); MEAN CORPUSCULAR HEMOGLOBIN 29.9 pg (25-34); MEAN CORPUSCULAR HGB CONC 33.4 g/dl (32-36); MEAN PLATELET VOLUME 10.4 fL (7.4-10.4); PLATELET COUNT 167 K/uL (130-400); RED BLOOD COUNT 4.35 M/uL (4.2-5.4); WHITE BLOOD COUNT 8.54 K/uL (4.8-10.8)
[2016-12-06] MEDS ORDERED: NURSING VERBAL MED ORDER ONE (10:15)
[2016-12-06 10:33] LABS: BUN/CREATININE RATIO 28.8 (10-20); CALCIUM 8.7 mg/dl (8.5-10.1); CREATININE 0.99 mg/dl (0.60-1.20); POTASSIUM 4.1 mmol/L (3.5-5.1)
[2016-12-06] MEDS: LACTOBACILLUS ACIDOPHILUS (FLORANEX) TAB PO SCH ×2 (12:07→16:41)
--- NOTE | 2016-12-06 12:09 | Progress Note ---
Internal Med Progress Note Date of Service: Dec 06, 2016. Provider Documentation: SUBJECTIVE: Seen and examined at bedside States SOB/wheezing is better denies chest pain Has intermittent dy cough Offers no other complaints OBJECTIVE: Vital Signs-as noted below Physical Exam: General Appearance:Obese, no apparent distress Head: normocephalic, Atraumatic Eyes: normal inspection, EOMI, PERRL Neck: supple, Trachea midline Respiratory/Chest: Normal breath sounds, mild basal creps Cardiovascular: S1, S2, No murmur Abdomen/GI:Soft, Non tender, Bowel sounds present Extremities/Musculoskelatal:normal inspection, no edema Neurologic/Psych:grossly no focal neurological deficits Skin: normal color, warm Lab data as noted below. ASSESSMENT & PLAN: Post infectious bronchitis: presented with ongoing symptom of cough , SOB , weakness for > 2 weeks CXR: no infiltrate Flu titer pending Continue Xopenex, Flonase, PPI for GERD rhinitis Taper off oxygen as able Continue Doxycycline for now Appreciate pulmonology Input Needs outpatient PFTs, Sleep study: Could have a componenet of COPD give h/o smoking and also need to rule out obstructive sleep apnea and obesity hypoventilation syndrome Continue incentive spirometry. BOBY : likely secondary to dehydration Resolved cr now back to baseline DC IV fluids avoid NSAID's H/O Tobacco use Quit years ago Code Status FULL CODE DVT Px: SQ heparin DISPOSITION : expected to be discharged home when medically stable Vital Signs: Date Time Temp Pulse Resp B/P (MAP) Pulse Ox O2 Delivery O2 Flow Rate FiO2 12/06/16 11:19 36.7 79 18 153/80 (104) 95 Nasal Cannula 2.0 12/06/16 08:00 95 Nasal Cannula 2.0 12/06/16 07:54 36.7 78 18 160/86 (110) 12/06/16 07:01 83 18 98 Nasal Cannula 2.0 12/06/16 04:00 Nasal Cannula 2.0 12/06/16 03:18 36.5 77 18 148/84 (105) 95 Nasal Cannula 2.0 12/06/16 01:43 103 18 95 Nasal Cannula 2.0 12/06/16 00:00 Nasal Cannula 2.0 12/05/16 23:03 36.8 75 20 123/74 (90) 95 Nasal Cannula 5.0 12/05/16 21:36 78 18 136/80 (98) 95 12/05/16 21:33 36.9 84 18 140/64 (89) 95 Nasal Cannula 2.0 12/05/16 20:00 96 Nasal Cannula 2.0 12/05/16 19:24 80 14 94 Nasal Cannula 2.0 12/05/16 17:53 36.5 83 18 144/78 96 Nasal Cannula 2.0 12/05/16 16:45 36.5 83 18 144/78 (100) 96 Nasal Cannula 2.0 12/05/16 16:13 37.1 85 18 116/54 98 12/05/16 15:59 85 18 116/54 98 Nasal Cannula 2.0 12/05/16 15:26 98 Nasal Cannula 2.0 12/05/16 15:01 89 Room Air 12/05/16 14:19 72 20 113/55 92 Room Air 12/05/16 12:54 97 Room Air 12/05/16 12:48 104 12/05/16 12:45 97 Room Air 12/05/16 12:38 37.1 86 22 125/80 96 Room Air Lab Results: Results Past 24 Hours Test 12/05/16 13:30 12/05/16 13:41 12/06/16 09:54 12/06/16 12:00 Range/Units White Blood Count 12.70 8.54 4.8-10.8 K/uL Red Blood Count 4.67 4.35 4.2-5.4 M/uL Hemoglobin 14.3 13.0 12.0-16.0 g/dL Hematocrit 42.2 38.9 37-47 % Mean Corpuscular Volume 90.4 89.4 80-100 fL Mean Corpuscular Hemoglobin 30.6 29.9 25-34 pg Mean Corpuscular Hemoglobin Concent 33.9 33.4 32-36 g/dl Platelet Count 218 167 130-400 K/uL Mean Platelet Volume 10.7 10.4 7.4-10.4 fL Neutrophils (%) (Auto) 55.1 % Lymphocytes (%) (Auto) 29.4 % Monocytes (%) (Auto) 10.4 % Eosinophils (%) (Auto) 4.6 % Basophils (%) (Auto) 0.2 % Neutrophils # (Auto) 6.99 1.4-6.5 K/uL Lymphocytes # (Auto) 3.73 1.2-3.4 K/uL Monocytes # (Auto) 1.32 0.11-0.59 K/uL Eosinophils # (Auto) 0.59 0-0.5 K/uL Basophils # (Auto) 0.03 0-0.2 K/uL RDW Standard Deviation 43.9 44.4 36.4-46.3 fL RDW Coefficient of Variation 13.5 13.5 11.5-14.5 % Immature Granulocyte % (Auto) 0.3 % Immature Granulocyte # (Auto) 0.04 0.00-0.02 K/uL Prothrombin Time 10.3 9.0-12.0 SECONDS Prothromb Time International Ratio 1.0 0.9-1.1 Activated Partial Thromboplast Time 23.2 21.0-31.0 SECONDS Partial Thromboplastin Ratio 0.9 Sodium Level 142 139 136-145 mmol/L Potassium Level 4.0 4.1 3.5-5.1 mmol/L Chloride Level 105 106 98-107 mmol/L Carbon Dioxide Level 30 25 21-32 mmol/L Anion Gap 7.0 8.0 3-11 mmol/L Blood Urea Nitrogen 28 29 7-18 mg/dl Creatinine 1.30 0.99 0.60-1.20 mg/dl Est Creatinine Clear Calc Drug Dose 42.2 55.7 ml/min Estimated GFR () 46.5 64.6 Estimated GFR (Non- 40.1 55.7 BUN/Creatinine Ratio 21.9 28.8 10-20 Random Glucose 97 185 70-99 mg/dl Calcium Level 9.3 8.7 8.5-10.1 mg/dl Magnesium Level 2.0 1.8-2.4 mg/dl Total Bilirubin 0.7 0.2-1 mg/dl Direct Bilirubin < 0.1 0-0.2 mg/dl Aspartate Amino Transf (AST/SGOT) 16 15-37 U/L Alanine Aminotransferase (ALT/SGPT) 25 12-78 U/L Alkaline Phosphatase 76 45-117 U/L Total Creatine Kinase 53 26-192 U/L Creatine Kinase MB 1.0 0.5-3.6 ng/ml Creatine Kinase MB Ratio 1.9 0-3.0 Troponin I < 0.015 0-0.045 ng/ml Total Protein 7.1 6.4-8.2 gm/dl Albumin 3.7 3.4-5.0 gm/dl Thyroid Stimulating Hormone (TSH) 1.130 0.300-4.500 uIu/ml Bedside Lactic Acid Venous 0.97 0.90-1.70 mmol/L Microbiology Results 12/05/16 Blood Culture, Received Pending 12/05/16 Blood Culture, Received Pending
--- NOTE | 2016-12-06 12:50 | Pulmonary Consultation ---
History General Date of Service: Dec 06, 2016. Stated Complaint: Cough,Sob HPI The patient is a 76 year old female who presents to [facility] with complaints of Cough,Sob. The patient's primary care provider is Carmelina Shelley D.O.. Ms. Reid is a 76-year-old female with past medical history of hypertension, CKD , GERD, hyperlipidemia, lumbosacral neuritis and spondylolisthesis who presents with 2 week history of shortness of breath, cough and wheezing associated with upper respiratory infection. She was recently seen in the ER on 11/29/2016 with complaints of fever, chills, rhinitis,sore throat, nausea and vomiting. She was also noted to be hypertensive to 193/108. Chest x-ray at that time showed a new left lower lobe opacification. She was discharged with Levaquin 750 mg 5 days, albuterol inhaler and Phenergan. Now she presents on 2016 with complaints of heart palpitations. She says that albuterol nebulizer is making her feel "weird". She still complains of shortness of breath mostly on exertion, nonproductive cough and sporadic wheezing. Shortness of breath has improved however does feel labored intermittently. Exercise tolerance is about 50 m. She denies any fevers, chills, chest pain, weakness, rash, nausea, vomiting, diarrhea or abdominal pain. She denies any lower extremity swelling, weakness or prolonged travel. She does admit to daytime somnolence and increased lethargy. She states she does have history of obstructive sleep apnea in the past but was unable to tolerate BiPAP. She denies any orthopnea. In the ER she was noted to have cough with sporadic wheezes with a desaturation to 89% on room air. Laboratory data showed white blood cell count of 12.7, hemoglobin of 14.3 and platelet count of 218. Chemistry showed sodium of 142, potassium of 4, chloride of 105, bicarbonate of 30, BUN of 28 and creatinine of 1.3. On her previous visit to the ER her creatinine was 0.87. TSH was 1.13, troponin less than 0.015. LFTs and coags were within normal limits. Repeat chest x-ray showed resolution of left lower lobe opacification. EKG showed normal sinus rhythm at [address] had showed mild thickening of ethmoid sinuses with no intracranial abnormalities. In the ER she received doxycycline IV, Solu-Medrol 125 IV, DuoNeb amps IV. She was admitted for hypoxemia. Her current medications include cetirizine 10 mg daily, Flonase 2 sprays daily, pantoprazole 40 mg daily, prednisone 40 mg daily, doxycycline 100 mg IV every 12 hours, Xopenex nebulizer every 4 hours. Historian: other Review of Systems Constitutional: reports: as stated in HPI, other (tiredness and lethargy, daytime somnolence) Eyes: reports: as stated in HPI ENT: reports: as stated in HPI Cardiovascular: reports: as stated in HPI Respiratory: reports: as stated in HPI Gastrointestinal: reports: as stated in HPI Genitourinary - Female: reports: as stated in HPI Musculoskeletal: reports: as stated in HPI Integumentary: reports: as stated in HPI Neurologic: reports: as stated in HPI Psychiatric: reports: as stated in HPI Endocrine: as stated in HPI Hematologic / Lymphatic: as stated in HPI Allergic / Immunologic: as stated in HPI All Other Symptoms All Other Systems: Reviewed and Negative Past Medical History Past Medical History: CK D GERD Hyperlipidemia Lumbosacral neuritis Sciatica Spondylolithiasis Past Surgical History: She has previous history of cataract surgery bilaterally. Previous back surgery, cholecystectomy and tubal ligation. 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 She is and lives with family. She is a former tobacco smoker quit in the 1980s denies any alcohol or illicit drug use. Hx Tobacco Use In Past Year?: No Smoking Status: Unknown if Ever Smoked Alcohol: occasional Drug Use: none Marital status: Housing status: lives alone Occupational Status: retired Immunizations History of Influenza Vaccine: Yes History of Tetanus Vaccine?: Yes History of Pneumococcal: No History of Hepatitis B Vaccine: No Allergies Coded Allergies: BEE STING (Verified Allergy, Unknown, SHOCK, 12/05/16) Codeine (Verified Allergy, Unknown, ITCHY, 12/05/16) Morphine (Verified Adverse Reaction, Intermediate, abd pain, 12/05/16) Oxycodone (Verified Adverse Reaction, Unknown, ABDOMINAL PAIN, ITCHING, ) Current Medications Reported Home Medications Medications Dose Route/Sig Max Daily Dose Days Date Category Prednisone 10 Mg Tab 10 Mg PO UD 9/25/17 Reported Celexa (Citalopram Hydrobromide) 40 Mg Tab 40 Mg PO DAILY 12/05/16 Reported Flonase Allergy Relief (Fluticasone Propionate (Nasal)) 50 Mcg/Act Spr 2 Sprays JOSE DAILY 11/19/16 Reported Tylenol (Acetaminophen) 500 Mg Tab 500 Mg PO HS PRN 11/19/16 Reported Epinephrine Hcl 0.1 Mg/Ml Inj 1 Dose IM DIRECTED PRN 10/01/15 Reported Fish Oil (Jaffrey-3 Fatty Acids) 1 Cap Cap 2 Cap PO QAM 10/01/15 Reported Tylenol Arthitis Ext Rel (Acetaminophen) 650 Mg Ertab 650 Mg PO QAM PRN 10/01/15 Reported Centrum Silver Adult 50+ (Multiple Vitamins W/ Minerals) 1 Tab Tab 1 Tab PO QAM 10/01/15 Reported Xanax (Alprazolam) 0.25 Mg Tab 1 Tab PO DAILY PRN 10/01/15 Reported Protonix (Pantoprazole Sodium) 40 Mg Tab 40 Mg PO QAM 10/01/15 Reported Lipitor (Atorvastatin Calcium) 40 Mg Tab 40 Mg PO QPM 10/01/15 Reported Zyrtec (Cetirizine HCl) 10 Mg Tab 10 Mg PO QAM 12/13/09 Reported Physical Physical Exam Vital Signs: Date Time Temp Pulse Resp B/P (MAP) Pulse Ox O2 Delivery O2 Flow Rate FiO2 12/06/16 07:54 36.7 78 18 160/86 (110) 12/06/16 07:01 83 18 98 Nasal Cannula 2.0 12/06/16 04:00 Nasal Cannula 2.0 12/06/16 03:18 36.5 77 18 148/84 (105) 95 Nasal Cannula 2.0 12/06/16 01:43 103 18 95 Nasal Cannula 2.0 12/06/16 00:00 Nasal Cannula 2.0 12/05/16 23:03 36.8 75 20 123/74 (90) 95 Nasal Cannula 5.0 12/05/16 21:36 78 18 136/80 (98) 95 12/05/16 21:33 36.9 84 18 140/64 (89) 95 Nasal Cannula 2.0 12/05/16 20:00 96 Nasal Cannula 2.0 12/05/16 19:24 80 14 94 Nasal Cannula 2.0 12/05/16 17:53 36.5 83 18 144/78 96 Nasal Cannula 2.0 12/05/16 16:45 36.5 83 18 144/78 (100) 96 Nasal Cannula 2.0 12/05/16 16:13 37.1 85 18 116/54 98 12/05/16 15:59 85 18 116/54 98 Nasal Cannula 2.0 12/05/16 15:26 98 Nasal Cannula 2.0 12/05/16 15:01 89 Room Air 12/05/16 14:19 72 20 113/55 92 Room Air 12/05/16 12:54 97 Room Air 12/05/16 12:48 104 12/05/16 12:45 97 Room Air 12/05/16 12:38 37.1 86 22 125/80 96 Room Air General Appearance: WELL-APPEARING, WD/WN, NO APPARENT DISTRESS, obese Head: NORMOCEPHALIC, ATRAUMATIC Eyes: PERRLA, NO DISCHARGE, EOMI, SCLERAE NORMAL, CONJUNCTIVAE NORMAL ENT: NORMAL MOUTH EXAM Neck: NORMAL RANGE OF MOTION, NO TENDERNESS, TRACHEA MIDLINE, NO STRIDOR, SUPPLE, NO LYMPHADENOPATHY Respiratory: BREATH SOUNDS NORMAL, CLEAR TO AUSCULTATION, NO RESPIRATORY DISTRESS, NO TENDERNESS Cardiovasular: REGULAR RATE/RHYTHM, NORMAL S1S2, NO M/G/R Abdomen: NON TENDER, NORMAL BOWEL SOUNDS, NO REBOUND, other (obese) Back: NORMAL INSPECTION, NO CVA TENDERNESS Upper Extremities: NO EDEMA, NO DEFORMITY, NORMAL ROM Lower Extremities: NO EDEMA, NO DEFORMITY, NORMAL ROM Pulses: dorsalis pedis (R) (2+), dorsalis pedis (L) (2+) Neuro: ALERT, ORIENTED x 3, NORMAL MOTOR EXAM, NORMAL SENSATION, NORMAL CEREBELLAR EXAM, NORMAL SPEECH, NORMAL MEMORY Psychiatric: NORMAL AFFECT, NO SUICIDAL IDEATION, CONTRACTS FOR SAFETY Diagnostics Labs Results Past 24 Hours Test 12/05/16 13:30 12/05/16 13:41 Range/Units White Blood Count 12.70 4.8-10.8 K/uL Red Blood Count 4.67 4.2-5.4 M/uL Hemoglobin 14.3 12.0-16.0 g/dL Hematocrit 42.2 37-47 % Mean Corpuscular Volume 90.4 80-100 fL Mean Corpuscular Hemoglobin 30.6 25-34 pg Mean Corpuscular Hemoglobin Concent 33.9 32-36 g/dl Platelet Count 218 130-400 K/uL Mean Platelet Volume 10.7 7.4-10.4 fL Neutrophils (%) (Auto) 55.1 % Lymphocytes (%) (Auto) 29.4 % Monocytes (%) (Auto) 10.4 % Eosinophils (%) (Auto) 4.6 % Basophils (%) (Auto) 0.2 % Neutrophils # (Auto) 6.99 1.4-6.5 K/uL Lymphocytes # (Auto) 3.73 1.2-3.4 K/uL Monocytes # (Auto) 1.32 0.11-0.59 K/uL Eosinophils # (Auto) 0.59 0-0.5 K/uL Basophils # (Auto) 0.03 0-0.2 K/uL RDW Standard Deviation 43.9 36.4-46.3 fL RDW Coefficient of Variation 13.5 11.5-14.5 % Immature Granulocyte % (Auto) 0.3 % Immature Granulocyte # (Auto) 0.04 0.00-0.02 K/uL Prothrombin Time 10.3 9.0-12.0 SECONDS Prothromb Time International Ratio 1.0 0.9-1.1 Activated Partial Thromboplast Time 23.2 21.0-31.0 SECONDS Partial Thromboplastin Ratio 0.9 Sodium Level 142 136-145 mmol/L Potassium Level 4.0 3.5-5.1 mmol/L Chloride Level 105 98-107 mmol/L Carbon Dioxide Level 30 21-32 mmol/L Anion Gap 7.0 3-11 mmol/L Blood Urea Nitrogen 28 7-18 mg/dl Creatinine 1.30 0.60-1.20 mg/dl Est Creatinine Clear Calc Drug Dose 42.2 ml/min Estimated GFR () 46.5 Estimated GFR (Non- 40.1 BUN/Creatinine Ratio 21.9 10-20 Random Glucose 97 70-99 mg/dl Calcium Level 9.3 8.5-10.1 mg/dl Magnesium Level 2.0 1.8-2.4 mg/dl Total Bilirubin 0.7 0.2-1 mg/dl Direct Bilirubin < 0.1 0-0.2 mg/dl Aspartate Amino Transf (AST/SGOT) 16 15-37 U/L Alanine Aminotransferase (ALT/SGPT) 25 12-78 U/L Alkaline Phosphatase 76 45-117 U/L Total Creatine Kinase 53 26-192 U/L Creatine Kinase MB 1.0 0.5-3.6 ng/ml Creatine Kinase MB Ratio 1.9 0-3.0 Troponin I < 0.015 0-0.045 ng/ml Total Protein 7.1 6.4-8.2 gm/dl Albumin 3.7 3.4-5.0 gm/dl Thyroid Stimulating Hormone (TSH) 1.130 0.300-4.500 uIu/ml Bedside Lactic Acid Venous 0.97 0.90-1.70 mmol/L Microbiology Results 12/05/16 Blood Culture, Received Pending 12/05/16 Blood Culture, Received Pending Diagnostic Radiology CHEST ONE VIEW PORTABLE CLINICAL HISTORY: EVALUATE WEAKNESS dyspnea COMPARISON STUDY: 11/19/2016 FINDINGS: The bones soft tissues and hemidiaphragms are normal. The cardiomediastinal silhouette is normal. The lungs are clear. The pulmonary vasculature is normal. Lungs are now considered clear. Infiltrate left base has resolved. IMPRESSION: Negative chest. The lungs are clear. EKG EKG shows normal sinus rhythm at 88 bpm. Impression Assessment and Plan Post infectious bronchitis Acute on chronic kidney injury Hypertension Morbid obesity Patient appears to have post infectious bronchitis. Chest x-ray shows resolution of the left lower lobe pneumonia.I do not feel that antibiotics are required at this time. Cough and wheezing are often sequela due to increased airway hyperreactivity and take several weeks to resolve. She can continue on Xopenex every 6 hours when necessary for shortness of breath and wheezing. Continue with PPI and Flonase nasal spray as GERD rhinitis can precipitate symptoms of coughing and wheezing. In the meantime I would give Tessalon Perles for cough. She does have previous history of smoking and quit over 30 years ago. She may have a component of COPD. However this should be verified with an outpatient PFT. She does most likely have her restrictive ventilatory defect due to her body habitus. This puts her at an risk for atelectasis which can cause hypoxia as well as obstructive sleep apnea and obesity hypoventilation syndrome. Continue supplemental oxygenation to maintain an SaO2 above 92% if needed. Encourage incentive spirometry. She should have outpatient sleep study. I appreciate the consult. Please contact me if you've any further questions or concerns.
[2016-12-06] MEDS ORDERED: SODIUM CHLORIDE 0.65% NA SOLN 45 ML (OCEAN) ONE (14:09)
[2016-12-06] MEDS ORDERED: SODIUM CHLORIDE 0.65% NA SOLN 45 ML (OCEAN) PRN (14:15)
[2016-12-06 15:54] LABS: INFLUENZA A PCR Neg for Influ A (NEG); INFLUENZA B PCR Neg for Influ B (NEG)
[2016-12-06] MEDS: ATORVASTATIN 40 MG TAB PO SCH (20:55)
[2016-12-07] VITALS (10 sets, daily range): BP systolic 136–160; BP diastolic 70–87; PULSE 68–99; TEMP 36.5–36.9; O2SAT 92–96
[2016-12-07] MEDS: LEVALBUTEROL 1.25MG/0.5ML NEB INH SCH ×4 (01:40→19:50)
[2016-12-07] MEDS: IPRATROPIUM BROMIDE NEB SOLN 0.02% 2.5 ML VIAL INH SCH ×4 (01:40→19:50)
[2016-12-07] MEDS: DOXYCYCLINE IV 100 MG in DEXTROSE 5% 100ML 100 ML IV SCH (04:12)
[2016-12-07] MEDS: HEPARIN SOD 5000 UNIT/0.5 ML CARP SQ SCH ×3 (05:25→21:37)
[2016-12-07 07:40] LABS: CREATININE 0.88 mg/dl (0.60-1.20); POTASSIUM 4.2 mmol/L (3.5-5.1)
[2016-12-07] MEDS: OMEGA-3 (PURIFIED FISH OIL) 1 GM CAP PO SCH (08:20)
[2016-12-07] MEDS: FLUTICASONE PROPIONATE NA SPR 16 GM BTL SCH (08:20)
[2016-12-07] MEDS: CITALOPRAM 40 MG TAB PO SCH (08:20)
[2016-12-07] MEDS: CETIRIZINE HCL 10 MG TAB PO SCH (08:20)
[2016-12-07] MEDS: PANTOprazole SOD 40 MG TAB PO SCH (08:20)
[2016-12-07] MEDS: CEROVITE ADV FORMULA TAB PO SCH (08:20)
[2016-12-07] MEDS: LACTOBACILLUS ACIDOPHILUS (FLORANEX) TAB PO SCH ×3 (08:20→16:35)
[2016-12-07] MEDS: FLUTICASONE PROPIONATE NA SPR 16 GM BTL NAE SCH (08:21)
[2016-12-07] MEDS ORDERED: COUGH DROP (SUGAR FREE) LOZ 24 LOZ/1 BOX ONE (11:52)
[2016-12-07] MEDS: ALPRAZOLAM 0.25 MG TAB PO PRN (11:57)
[2016-12-07] MEDS ORDERED: NURSING DECISION MEDICATION ORDER SCH (12:00)
[2016-12-07] MEDS ORDERED: COUGH DROP (SUGAR FREE) LOZ 24 LOZ/1 BOX PO PRN (12:15)
[2016-12-07] MEDS ORDERED: NURSING VERBAL MED ORDER ONE ×2 (12:15→12:45)
[2016-12-07] MEDS ORDERED: LEVALBUTEROL 1.25MG/3ML NEB INH PRN (13:00)
[2016-12-07] MEDS: BENZONATATE 100MG CAP PO PRN ×2 (13:28→22:37)
--- NOTE | 2016-12-07 17:12 | Progress Note ---
Internal Med Progress Note Date of Service: Dec 07, 2016. Provider Documentation: SUBJECTIVE: Seen and examined at bedside States having persistent intermittent dry cough Denies SOB/wheezing/chest pain Offers no other complaints OBJECTIVE: Vital Signs-as noted below Physical Exam: General Appearance:Obese, no apparent distress Head: normocephalic, Atraumatic Eyes: normal inspection, EOMI, PERRL Neck: supple, Trachea midline Respiratory/Chest: Normal breath sounds, CTA Cardiovascular: S1, S2, No murmur Abdomen/GI:Soft, Non tender, Bowel sounds present Extremities/Musculoskelatal:normal inspection, no edema Neurologic/Psych:grossly no focal neurological deficits Skin: normal color, warm Lab data as noted below. ASSESSMENT & PLAN: Post infectious bronchitis: presented with ongoing symptom of cough , SOB , weakness for > 2 weeks CXR: no infiltrate Flu titer: negative Continue Xopenex, Flonase, PPI for GERD rhinitis saturating well on Room air Continue Doxycycline Appreciate pulmonology Input Needs outpatient PFTs, Sleep study: Could have a component of COPD give h/o smoking and also need to rule out obstructive sleep apnea and obesity hypoventilation syndrome Continue incentive spirometry. BOBY : likely secondary to dehydration Resolved cr now back to baseline DC IV fluids avoid NSAID's H/O Tobacco use Quit years ago Code Status FULL CODE DVT Px: SQ heparin DISPOSITION : expected to be discharged home when medically stable Vital Signs: Date Time Temp Pulse Resp B/P (MAP) Pulse Ox O2 Delivery O2 Flow Rate FiO2 12/07/16 16:00 Room Air 12/07/16 12:58 85 18 96 Room Air 12/07/16 12:00 96 Room Air 12/07/16 11:26 36.9 99 20 136/71 (92) 92 Room Air 12/07/16 08:00 93 Room Air 12/07/16 07:25 36.5 68 18 158/87 (110) 93 Room Air 12/07/16 07:24 75 18 95 Room Air 12/07/16 04:00 Room Air 12/07/16 03:33 36.7 98 18 160/85 (110) 93 Room Air 12/07/16 01:40 91 18 96 Room Air 12/07/16 00:00 Room Air 12/06/16 23:45 36.5 86 18 138/73 (94) 95 Room Air 12/06/16 20:00 Room Air 12/06/16 19:48 82 18 92 Room Air 12/06/16 19:39 36.6 84 18 160/83 (108) 93 Room Air Lab Results: Results Past 24 Hours Test 12/07/16 06:50 Range/Units Sodium Level 142 136-145 mmol/L Potassium Level 4.2 3.5-5.1 mmol/L Chloride Level 109 98-107 mmol/L Carbon Dioxide Level 26 21-32 mmol/L Anion Gap 7.0 3-11 mmol/L Blood Urea Nitrogen 27 7-18 mg/dl Creatinine 0.88 0.60-1.20 mg/dl Est Creatinine Clear Calc Drug Dose 53.3 ml/min Estimated GFR () 74.5 Estimated GFR (Non- 64.3 BUN/Creatinine Ratio 31.0 10-20 Random Glucose 95 70-99 mg/dl Calcium Level 9.0 8.5-10.1 mg/dl
[2016-12-07] MEDS ORDERED: DEXTROMETHORPHAN POLYMR COMPLX 30MG/5 ML PO PRN (17:45)
[2016-12-07] MEDS: ATORVASTATIN 40 MG TAB PO SCH (21:37)
[2016-12-07] MEDS: DOXYCYCLINE HYCLATE 100 MG CAP PO SCH (22:21)
[2016-12-07] MEDS: ACETAMINOPHEN 325 MG TAB PO PRN (22:38)
[2016-12-08] VITALS (7 sets, daily range): BP systolic 125–154; BP diastolic 80–83; PULSE 68–80; TEMP 36.7–37; O2SAT 91–97
[2016-12-08] MEDS: LEVALBUTEROL 1.25MG/0.5ML NEB INH SCH ×2 (01:48→07:23)
[2016-12-08] MEDS: IPRATROPIUM BROMIDE NEB SOLN 0.02% 2.5 ML VIAL INH SCH ×2 (01:48→07:23)
[2016-12-08] MEDS: HEPARIN SOD 5000 UNIT/0.5 ML CARP SQ SCH (06:04)
[2016-12-08] MEDS: FLUTICASONE PROPIONATE NA SPR 16 GM BTL NAE SCH (07:28)
[2016-12-08] MEDS: DOXYCYCLINE HYCLATE 100 MG CAP PO SCH (07:31)
[2016-12-08] MEDS: PANTOprazole SOD 40 MG TAB PO SCH (07:31)
[2016-12-08] MEDS: FLUTICASONE PROPIONATE NA SPR 16 GM BTL SCH (07:31)
[2016-12-08] MEDS: CITALOPRAM 40 MG TAB PO SCH (07:32)
[2016-12-08] MEDS: LACTOBACILLUS ACIDOPHILUS (FLORANEX) TAB PO SCH (07:32)
[2016-12-08] MEDS: CETIRIZINE HCL 10 MG TAB PO SCH (07:32)
[2016-12-08] MEDS: CEROVITE ADV FORMULA TAB PO SCH (07:32)
[2016-12-08] MEDS: OMEGA-3 (PURIFIED FISH OIL) 1 GM CAP PO SCH (07:32)
[2016-12-08] MEDS: BENZONATATE 100MG CAP PO PRN (07:35)
[2016-12-08 07:56] LABS: HEMATOCRIT 39.2 % (37-47); MEAN CELL VOLUME 91.4 fL (80-100); MEAN CORPUSCULAR HEMOGLOBIN 28.9 pg (25-34); MEAN CORPUSCULAR HGB CONC 31.6 g/dl (32-36); MEAN PLATELET VOLUME 10.9 fL (7.4-10.4); PLATELET COUNT 157 K/uL (130-400); RED BLOOD COUNT 4.29 M/uL (4.2-5.4)
[2016-12-08 08:28] LABS: BUN/CREATININE RATIO 29.7 (10-20); CALCIUM 9.1 mg/dl (8.5-10.1); CREATININE 0.87 mg/dl (0.60-1.20); POTASSIUM 4.3 mmol/L (3.5-5.1)
[2016-12-08] MEDS: ACETAMINOPHEN 325 MG TAB PO PRN (09:34)
--- NOTE | 2016-12-08 10:47 | Progress Note ---
Internal Med Progress Note Date of Service: Dec 08, 2016. Provider Documentation: SUBJECTIVE: Seen and examined at bedside Has dry cough Denies SOB/wheezing Reports palpitations with breathing treatments Offers no other complaints OBJECTIVE: Vital Signs-as noted below Physical Exam: General Appearance:Obese, no apparent distress Head: normocephalic, Atraumatic Eyes: normal inspection, EOMI, PERRL Neck: supple, Trachea midline Respiratory/Chest: Normal breath sounds, CTA Cardiovascular: S1, S2, No murmur Abdomen/GI:Soft, Non tender, Bowel sounds present Extremities/Musculoskelatal:normal inspection, no edema Neurologic/Psych:grossly no focal neurological deficits Skin: normal color, warm Lab data as noted below. ASSESSMENT & PLAN: Post infectious bronchitis: presented with ongoing symptom of cough , SOB , weakness for > 2 weeks CXR: no infiltrate Flu titer: negative Continue Xopenex, Flonase, PPI for GERD rhinitis saturating well on Room air Continue Doxycycline Appreciate pulmonology Input Needs outpatient PFTs, Sleep study: Could have a component of COPD give h/o smoking and also need to rule out obstructive sleep apnea and obesity hypoventilation syndrome Continue incentive spirometry. BOBY : likely secondary to dehydration Resolved cr now back to baseline DC IV fluids avoid NSAID's H/O Tobacco use Quit years ago Code Status FULL CODE DVT Px: SQ heparin DISPOSITION : Plan to discharge home today Follow up with your PCP on 12/12/16 at 10:55am Get Pulmonary function tests, Sleep study as outpatient as per recommendations from Pulmonology Complete the antibiotic and prednisone course as prescribed Seek immediate medical attention if your symptoms reoccur or worsen Vital Signs: Date Time Temp Pulse Resp B/P (MAP) Pulse Ox O2 Delivery O2 Flow Rate FiO2 12/08/16 08:00 Room Air 12/08/16 07:32 36.7 74 16 154/80 (104) 93 12/08/16 07:25 77 18 97 Room Air 12/08/16 04:00 36.8 68 18 143/82 (102) 95 Room Air 12/08/16 04:00 Room Air 12/08/16 01:48 76 18 95 Room Air 12/08/16 00:35 36.8 80 18 125/83 (97) 91 12/08/16 00:00 Room Air 12/07/16 20:00 Room Air 12/07/16 19:51 79 16 95 Room Air 12/07/16 19:29 36.7 80 18 142/70 (94) 94 Room Air 12/07/16 16:00 Room Air 12/07/16 12:58 85 18 96 Room Air 12/07/16 12:00 96 Room Air 12/07/16 11:26 36.9 99 20 136/71 (92) 92 Room Air Lab Results: Results Past 24 Hours Test 12/08/16 07:32 Range/Units White Blood Count 8.30 4.8-10.8 K/uL Red Blood Count 4.29 4.2-5.4 M/uL Hemoglobin 12.4 12.0-16.0 g/dL Hematocrit 39.2 37-47 % Mean Corpuscular Volume 91.4 80-100 fL Mean Corpuscular Hemoglobin 28.9 25-34 pg Mean Corpuscular Hemoglobin Concent 31.6 32-36 g/dl RDW Standard Deviation 47.4 36.4-46.3 fL RDW Coefficient of Variation 14.2 11.5-14.5 % Platelet Count 157 130-400 K/uL Mean Platelet Volume 10.9 7.4-10.4 fL Sodium Level 144 136-145 mmol/L Potassium Level 4.3 3.5-5.1 mmol/L Chloride Level 109 98-107 mmol/L Carbon Dioxide Level 27 21-32 mmol/L Anion Gap 8.0 3-11 mmol/L Blood Urea Nitrogen 26 7-18 mg/dl Creatinine 0.87 0.60-1.20 mg/dl Est Creatinine Clear Calc Drug Dose 53.9 ml/min Estimated GFR () 75.5 Estimated GFR (Non- 65.2 BUN/Creatinine Ratio 29.7 10-20 Random Glucose 80 70-99 mg/dl Calcium Level 9.1 8.5-10.1 mg/dl
[2016-12-08] MEDS ORDERED: DXY100 PO (10:50)
[2016-12-08] MEDS ORDERED: PRED10TA PO (10:50)
--- NOTE | 2016-12-08 10:51 | Discharge Summary ---
Discharge Summary Date of Service Dec 08, 2016. Discharge Summary Admission Date: Dec 05, 2016 at 15:44 Discharge Date: Dec 08, 2016 Discharge Disposition: Home Principal Diagnosis: Post Infectious Bronchitis Procedures: CXR: Negative chest. The lungs are clear. Consultations: Pulmonology Pending Studies/Follow-Up: Follow up with your PCP on 12/12/16 at 10:55am Get Pulmonary function tests, Sleep study as outpatient as per recommendations from Pulmonology Complete the antibiotic and prednisone course as prescribed Seek immediate medical attention if your symptoms reoccur or worsen Medication Reconciliation New Medications: Prednisone Tab (Prednisone) 10 Mg Tab 10 MG PO UD for 6 Days, #5 TAB Start taking 10mg daily for 3 days then 5mg daily for 3 days and stop Doxycycline Hyclate (Doxycycline Hyclate) 100 Mg Cap 100 MG PO BID for 4 Days, #8 CAP Continued Medications: Acetaminophen (Tylenol Arthitis Ext Rel) 650 Mg Ertab 650 MG PO QAM PRN for Pain, CAP Acetaminophen (Tylenol) 500 Mg Tab 500 MG PO HS PRN for Pain, TAB Alprazolam (Xanax) 0.25 Mg Tab 1 TAB PO DAILY PRN for Anxiety Atorvastatin (Lipitor) 40 Mg Tab 40 MG PO QPM, TAB Cetirizine (Zyrtec) 10 Mg Tab 10 MG PO QAM Citalopram Hydrobromide (Celexa) 40 Mg Tab 40 MG PO DAILY, TAB Epinephrine Hcl (Epinephrine Hcl) 0.1 Mg/Ml Inj 1 DOSE IM DIRECTED PRN for ALLERGIC REACTION Fluticasone Propionate (Nasal) (Flonase Allergy Relief) 50 Mcg/Act Spr 2 SPRAYS JOSE DAILY Multiple Vitamins W/ Minerals (Centrum Silver Adult 50+) 1 Tab Tab 1 TAB PO QAM [place]-3 Fatty Acids (Fish Oil) 1 Cap Cap 2 CAP PO QAM Pantoprazole (Protonix) 40 Mg Tab 40 MG PO QAM Discontinued Medications: Prednisone Tab (Prednisone) 10 Mg Tab 10 MG PO UD, TAB Admission Information HPI (per Admitting provider): this is a 76 yo F presents to ED with complain of 2 weeks hx of cough , SOB , generalized weakness and fatigue pt was seen in ER approx 1 week back with similar symptom -was discharged with neb thx was seen at her PCP office approx 3 days back , started on PO Prednisone taper , no improvement of her symptom today presents with cough , SOB , hypoxia in RA pt did not had any prior hx of COPD or asthma , she is a non smoker 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 -mentions of a lot of sick contacts with children with URI symptom denies of any chest pain , having episodes of palpitation with duo neb tx Physical Exam (per Admitting): General Appearance: no apparent distress Neck: supple, no JVD Respiratory/Chest: no respiratory distress, + decreased breath sounds Cardiovascular: regular rate, rhythm, no edema Abdomen/GI: normal bowel sounds, non tender, soft Back: no CVA tenderness Extremities/Musculoskelatal: normal capillary refill, no pedal edema Neurologic/Psych: alert, normal mood/affect Skin: normal color, warm/dry, no rash Hospital Course Post infectious bronchitis: presented with ongoing symptom of cough , SOB , weakness for > 2 weeks CXR: no infiltrate Flu titer: negative Continue Xopenex, Flonase, PPI for GERD rhinitis saturating well on Room air Continue Doxycycline Appreciate pulmonology Input Needs outpatient PFTs, Sleep study: Could have a component of COPD give h/o smoking and also need to rule out obstructive sleep apnea and obesity hypoventilation syndrome Continue incentive spirometry. BOBY : likely secondary to dehydration Resolved cr now back to baseline DC IV fluids avoid NSAID's H/O Tobacco use Quit years ago Code Status FULL CODE DVT Px: SQ heparin DISPOSITION : Plan to discharge home today Follow up with your PCP on 12/12/16 at 10:55am Get Pulmonary function tests, Sleep study as outpatient as per recommendations from Pulmonology Complete the antibiotic and prednisone course as prescribed Seek immediate medical attention if your symptoms reoccur or worsen Total time spent on discharge = 31 minutes This includes examination of the patient, discharge planning, medication reconciliation, and communication with other providers. Discharge Instructions Discharge Instructions Date of Service Dec 08, 2016. Admission Reason for Admission: Cough,Sob Discharge Discharge Diagnosis / Problem: Post Infectious Bronchitis Discharge Goals Goal(s): Decrease discomfort, Improve function Activity Recommendations Activity Limitations: resume your previous activity Exercise/Sports Limitations: as tolerated . Instructions / Follow-Up Instructions / Follow-Up Follow up with your PCP on 12/12/16 at 10:55am Get Pulmonary function tests, Sleep study as outpatient as per recommendations from Pulmonology Complete the antibiotic and prednisone course as prescribed Seek immediate medical attention if your symptoms reoccur or worsen Current Hospital Diet Patient's current hospital diet: Regular Diet Discharge Diet Recommended Diet: Regular Diet Pending Studies Studies pending at discharge: no Medical Emergencies . Who to Call and When: Medical Emergencies: If at any time you feel your situation is an emergency, please call 911 immediately. . Non-Emergent Contact Non-Emergency issues call your: Primary Care Provider Call Non-Emergent contact if: you have a fever, your pain is not controlled, your pain is worsening, your pain is unusual for you, your pain is concerning you, you have any medication questions Seek immediate medical attention if your symptoms reoccur or worsen . . "Provider Documentation" section prepared by Alberto Fung. . VTE Core Measure Inpt VTE Proph given/why not?: Unfractionated heparin SQ
== END 2016-12-08 13:20 | disposition home or self-care (01) | DRG 206 ==
LOC: C.EDB 12:36 → C.MED 15:44 → ENRESERV 15:58
PROVIDERS: ADMIT Hospitalist; ATTEND Internal Medicine
DX: E66.2 Morbid (severe) obesity with alveolar hypoventilation (principal); N17.9 Acute kidney failure, unspecified; J44.1 Chronic obstructive pulmonary disease with (acute) exacerbation; N18.3 Chronic kidney disease, stage 3 (moderate); K21.9 Gastro-esophageal reflux disease without esophagitis; I12.9 Hypertensive chronic kidney disease with stage 1 through stage 4 chronic kidney disease, or unspecified chronic kidney disease; E78.5 Hyperlipidemia, unspecified; Z87.891 Personal history of nicotine dependence

== ENCOUNTER → 2017-03-22 | Outpatient (CLI) | payer OTHER ==
[~2017-03-22] MED LIST changes: +CITA40TA12 PO; -CLX20 PO; +DXY100 PO; -LEVO1TAB35 PO; -PROM25TA9 PO
--- NOTE | 2017-03-22 11:10 | DIAGNOSTIC IMAGING REPORT ---
SINUSES MIN 3 VIEWS ROUTINE CLINICAL HISTORY: COUGH COMPARISON STUDY: Head CT 11/19/2016. FINDINGS: The paranasal sinuses and mastoid air cells are clear. No fluid levels identified. The nasal septum is essentially midline. IMPRESSION: The paranasal sinuses and mastoid air cells are clear. Electronically signed by: Basil Rodgers M.D. 03/22/2017 11:08 AM Dictated Date/Time: 03/22/2017 11:07 AM
== END | disposition home or self-care (01) ==
LOC: C.RAD1850 10:51
PROVIDERS: ATTEND Physician Assistant
DX: R05 Cough (principal)

== ENCOUNTER → 2017-04-05 | Outpatient (CLI) | payer OTHER ==
[2017-04-05 13:15] LABS: BASO % 0.3 %; BASO ABS # 0.02 K/uL (0-0.2); EOS % 10.7 %; EOS ABS # 0.62 K/uL (0-0.5); HEMATOCRIT 40.7 % (37-47); HEMOGLOBIN 13.2 g/dL (12.0-16.0); IG# 0.01 K/uL (0.00-0.02); LYMPH % 33.1 %; LYMPH ABS # 1.92 K/uL (1.2-3.4); MEAN CELL VOLUME 91.7 fL (80-100); MEAN CORPUSCULAR HEMOGLOBIN 29.7 pg (25-34); MEAN CORPUSCULAR HGB CONC 32.4 g/dl (32-36); MEAN PLATELET VOLUME 10.9 fL (7.4-10.4); MONO % 8.3 %; MONO ABS # 0.48 K/uL (0.11-0.59); NEUT % 47.4 %; NEUT ABS # 2.75 K/uL (1.4-6.5); PLATELET COUNT 185 K/uL (130-400); RED CELL DISTRIBUTION WIDTH SD 43.5 fL (36.4-46.3)
[2017-04-05 13:52] LABS: BLOOD UREA NITROGEN 19 mg/dl (7-18); CALCIUM 9.8 mg/dl (8.5-10.1); CARBON DIOXIDE 27 mmol/L (21-32); CREATININE 0.79 mg/dl (0.60-1.20); GLUCOSE 116 mg/dl (70-99); POTASSIUM 3.8 mmol/L (3.5-5.1); SODIUM 141 mmol/L (136-145)
== END | disposition home or self-care (01) ==
LOC: C.LAB1850 12:10
PROVIDERS: ATTEND Physician Assistant
DX: R05 Cough (principal)

== ENCOUNTER 2017-04-16 04:54 | Emergency (ER) | payer OTHER ==
[~2017-04-16] VITALS: Ht 160 cm; Wt 100.7 kg
[2017-04-16 05:00] VITALS: TEMP 36.8; Ht 160 cm; Wt 100.7 kg
--- NOTE | 2017-04-16 05:22 | EMERGENCY ROOM VISIT NOTE ---
History Report prepared by Red: Rainer Greene Under the Supervision of: Dr. Milka Morataya D.O. First contact with patient: 04:57 Chief Complaint: SHORTNESS OF BREATH Stated Complaint: SHORTNESS OF BREATH Nursing Triage Summary: PT DX with pneumonia in Nov, was admitted for 4 days. PT since has intermittent cough and SOB. PT has mucous production that is clear/yellow. PT has no fever or chills at this time, denies any CP states "I just have a hard time taking a deep breath" PT this am got up to go to the bathroom and became very SOB. History of Present Illness The patient is a 77 year old female who presents to the Emergency Room via EMS with complaints of intermittent shortness of breath that began prior to arrival. Patient describes the shortness of breath as "not being able to breath ". Patient denies a history of similar symptoms. She states she used her inhaler twice which slightly relieved the symptoms. Patient has associated symptoms of a worsening productive cough that began 2 days ago. She adds that the back of her leg is tender. Patient has a history of pneumonia from November. She states that she has been intermittently coughing since November. She states that she stopped taking her cough medication a week ago because she was "feeling better". Patient denies abdominal pain, leg swelling, and chest pain. Patient states that she has a history of smoking. Pertinent past medical history includes sleep apnea. Patient adds that she plans on scheduling a bronchoscopy with Dr. Patterson. Patient states that she lives by herself. Source of History: patient Onset: Prior to arrival Timing: intermittent Modifying Factors (Relieving): other (Inhaler) Associated Symptoms: + cough, No chest pain, No abdominal pain Note: Patient denies leg swelling. Review of Systems See HPI for pertinent positives & negatives. A total of 10 systems reviewed and were otherwise negative. Past Medical & Surgical Medical Problems: (1) Chronic Kidney Disease, Stage Iii (Moderate) (2) Esophageal Reflux (3) Hyperlipidemia Nec/Nos (4) Lumbosacral Neuritis Nos (5) Sciatica Social History Problems: (1) Acq Spondylolisthesis (2) History Of Tobacco Use Family History No pertinent family history Social History Smoking Status: Former Smoker Alcohol Use: none Marital Status: Housing Status: lives with family Occupation Status: retired Current/Historical Medications Scheduled Atorvastatin (Lipitor), 40 MG PO QPM Cetirizine (Zyrtec), 10 MG PO QAM Cholecalciferol (Vitamin D3), 3,000 UNITS PO DAILY Citalopram Hydrobromide (Celexa), 40 MG PO DAILY Fluticasone Propionate (Nasal) (Flonase Allergy Relief), 2 SPRAYS JOSE DAILY Multiple Vitamins W/ Minerals (Centrum Silver Adult 50+), 1 TAB PO QAM [place]-3 Fatty Acids (Fish Oil), 2 CAP PO QAM Pantoprazole (Protonix), 40 MG PO QAM Scheduled PRN Acetaminophen (Tylenol Arthitis Ext Rel), 650 MG PO QAM PRN for Pain Acetaminophen (Tylenol), 500 MG PO HS PRN for Pain Alprazolam (Xanax), 1 TAB PO DAILY PRN for Anxiety Epinephrine Hcl (Epinephrine Hcl), 1 DOSE IM DIRECTED PRN for ALLERGIC REACTION Allergies Coded Allergies: BEE STING (Verified Allergy, Unknown, SHOCK, 04/16/17) Codeine (Verified Allergy, Unknown, ITCHY, 04/16/17) Morphine (Verified Adverse Reaction, Intermediate, abd pain, 04/16/17) Oxycodone (Verified Adverse Reaction, Unknown, ABDOMINAL PAIN, ITCHING, 04/16/17) Physical Exam Vital Signs Date Time Temp Pulse Resp B/P (MAP) Pulse Ox O2 Delivery O2 Flow Rate FiO2 04/16/17 09:05 74 145/97 95 158/93 04/16/17 08:35 75 18 151/92 92 Room Air 04/16/17 07:00 98 Room Air 04/16/17 06:59 75 16 133/95 98 Room Air 04/16/17 05:00 96 Room Air 04/16/17 05:00 36.8 83 18 156/84 96 Room Air Physical Exam HEENT: Head - normocephalic and atraumatic Pupils are equal, round, and reactive to light. Extraocular eye muscles are intact, and sclera are anicteric. Nose - moist nasal mucosa without discharge. Mouth - moist buccal mucosa. Oropharynx is nonerythematous and there is no tonsillar exudate or edema noted. Neck: Supple; no JVD, nuchal rigidity, cervical lymphadenopathy. Heart: Regular rate and rhythm. There is a normal S1 and S2 with no murmurs, clicks, or gallops appreciated. Lungs: Diffuse rhonchi with no wheezes or rales. Breath sounds equal bilaterally. Abdomen: Soft, completely nontender, nondistended, with good bowel sounds. There are no palpable pulsatile masses or hepatosplenomegaly. There is no guarding, rigidity, or rebound noted. Extremities: No evidence of cyanosis, clubbing, or edema. There are easily palpable peripheral pulses. Skin: warm and dry with good turgor and no rashes. Medical Decision & Procedures ER Provider Diagnostic Interpretation: Radiology results as stated below per my review and the radiologist's interpretation: CHEST 2 VIEWS ROUTINE CLINICAL HISTORY: 77 years-old Female presenting with sob. TECHNIQUE: PA and lateral views of the chest were obtained. COMPARISON: 12/05/2016. FINDINGS: Atherosclerosis of the aortic arch. Cardiac silhouette normal in size. Prominent skin fold over the lateral left hemithorax. Lungs and pleural spaces clear. Osseous structures normal. Upper abdomen normal. IMPRESSION: 1. No acute cardiopulmonary disease. Electronically signed by: Matt Mclean M.D. 04/16/2017 6:19 AM (CHEST FOR PE) ANGIO WITH CLINICAL HISTORY: 77 years-old Female presenting with recent pneumonia in November, intermittent cough and shortness of breath since then, current mucus production, no fever, difficulty with deep inspiration, clinical concern for pulmonary embolus. TECHNIQUE: Multidetector CT angiography of the chest was performed after administration of intravenous contrast. 3-D volumetric and/or maximum intensity projection (MIP) images were subsequently reconstructed for review. IV contrast: 93 mL of Optiray 320. A dose lowering technique was used consistent with the principles of ALARA (as low as reasonably achievable). COMPARISON: Chest x-ray performed earlier the same day. CT DOSE (mGy.cm): The estimated cumulative dose is 589.93 mGy.cm. FINDINGS: Early Childhood Educator Aide topogram: Cholecystectomy clips. Pulmonary vasculature: The study is adequate for assessment of the pulmonary vascular tree. No filling defect within the pulmonary arteries to suggest embolus. Main pulmonary artery is not enlarged. No flattening of the interventricular septum. No intracardiac filling defect. No reflux of contrast into the hepatic veins. Remaining chest: On soft tissue windows, subcentimeter nodule in the left thyroid lobe. Prominent bilateral hilar and mediastinal lymph nodes. The largest lymph nodes are in the precarinal region, measuring 11 mm in short axis, and subcarinal region, measuring 12 mm in the short axis. A subcentimeter prominent left clavicular lymph node is also noted. Atherosclerosis of the aorta. Normal heart size. Trace coronary artery calcification at the origin of the right main coronary artery. No pericardial or pleural effusion. Cholecystectomy clips. Prominence of bile ducts likely a reservoir effect in the post cholecystectomy state. On lung windows, mild mosaic attenuation most prominently in the upper lobes, suggestive of small airways disease. No focal infiltrate or nodule. Minimal dependent changes likely atelectasis. Trace nodularity along the left major fissure the level of the superior segment of the left lower lobe. Large airways patent. On bone windows, degenerative changes of the spine. IMPRESSION: 1. No evidence of pulmonary embolus. 2. Bilateral hilar and mediastinal lymphadenopathy. This is nonspecific is seen in the setting of sarcoidosis, lymphoma, or reactive lymphadenopathy secondary to reported prior pneumonia. However, subtle nodularity along the left major fissure could point to sarcoidosis as the etiology. Correlate clinically. 3. Small airways disease suggested by mild mosaic attenuation in the upper lobes. Electronically signed by: Matt Mclean M.D. 04/16/2017 8:34 AM Laboratory Results 04/16/17 05:40 Red Blood Count 4.33, Mean Corpuscular Volume 90.5, Mean Corpuscular Hemoglobin 30.3, Mean Corpuscular Hemoglobin Concent 33.4, Mean Platelet Volume 10.4, Neutrophils (%) (Auto) 54.5, Lymphocytes (%) (Auto) 30.9, Monocytes (%) (Auto) 13.2, Eosinophils (%) (Auto) 0.8, Basophils (%) (Auto) 0.2, Neutrophils # (Auto ) 2.65, Lymphocytes # (Auto) 1.50, Monocytes # (Auto) 0.64, Eosinophils # (Auto ) 0.04, Basophils # (Auto) 0.01 04/16/17 05:40 Test 04/16/17 05:38 04/16/17 05:40 Influenza Type A Antigen Neg for Influ A (NEG) Influenza Type B Antigen Neg for Influ B (NEG) White Blood Count 4.86 K/uL (4.8-10.8) Red Blood Count 4.33 M/uL (4.2-5.4) Hemoglobin 13.1 g/dL (12.0-16.0) Hematocrit 39.2 % (37-47) Mean Corpuscular Volume 90.5 fL (80-100) Mean Corpuscular Hemoglobin 30.3 pg (25-34) Mean Corpuscular Hemoglobin Concent 33.4 g/dl (32-36) Platelet Count 154 K/uL (130-400) Mean Platelet Volume 10.4 fL (7.4-10.4) Neutrophils (%) (Auto) 54.5 % Lymphocytes (%) (Auto) 30.9 % Monocytes (%) (Auto) 13.2 % Eosinophils (%) (Auto) 0.8 % Basophils (%) (Auto) 0.2 % Neutrophils # (Auto) 2.65 K/uL (1.4-6.5) Lymphocytes # (Auto) 1.50 K/uL (1.2-3.4) Monocytes # (Auto) 0.64 K/uL (0.11-0.59) Eosinophils # (Auto) 0.04 K/uL (0-0.5) Basophils # (Auto) 0.01 K/uL (0-0.2) RDW Standard Deviation 43.0 fL (36.4-46.3) RDW Coefficient of Variation 13.1 % (11.5-14.5) Immature Granulocyte % (Auto) 0.4 % Immature Granulocyte # (Auto) 0.02 K/uL (0.00-0.02) D-Dimer 590 ug/L FEU (0-500) Anion Gap 6.0 mmol/L (3-11) Est Creatinine Clear Calc Drug Dose 61.6 ml/min Estimated GFR () 74.0 Estimated GFR (Non- 63.8 BUN/Creatinine Ratio 22.5 (10-20) Calcium Level 9.2 mg/dl (8.5-10.1) Total Creatine Kinase 50 U/L (26-192) Creatine Kinase MB 0.9 ng/ml (0.5-3.6) Creatine Kinase MB Ratio 1.8 (0-3.0) Troponin I < 0.015 ng/ml (0-0.045) Pro-B-Type Natriuretic Peptide 155 pg/ml (0-1800) Laboratory results per my review. ECG Indication: SOB/dyspnea Rate (beats per minute): 71 Rhythm: normal sinus Findings: no acute ischemic change, no ectopy ED Course 0505: Past medical records reviewed. The patient was evaluated in room B10. A complete history and physical exam was performed. Laboratory studies were drawn as above. A twelve-lead EKG was obtained as described above. The patient had chest x-ray which was unremarkable. 0515: Patient's electrocardiogram was interpreted by me. 0700: The patient is resting comfortably in her room. I informed her that she had an elevated d-dimer and would need to go for CT scan. 0715: The patient went for CT scan of the chest to rule out PE. 0844: I reassessed the patient. Medical Decision The patient is a 77 year old female who presents to the ED with shortness of breath. Differential diagnosis includes pneumonia, PE, and CHF. Lab results show normal white count, stable H&H, d dimer = 590, BNP = 155, normal troponin, normal renal function and glucose, and negative influenza. This is a 77 year old female patient who presents to the emergency department with a long-standing history of cough and slight persistent shortness of breath. The patient's shortness of breath got drastically worse overnight. O2 saturations were stable on physical exam. She does describe some discomfort in the back of her legs for which she has been taking Tylenol and some increasing shortness of breath. She does have an elevated d-dimer. She went for CT scan of the chest to rule out PE. There is no evidence of PE but there was moderate hilar lymphadenopathy. I reviewed these results with the patient and explained to her the importance of follow-up with Dr. Patterson for bronchoscopy as was being scheduled. I encouraged her to avoid strenuous activity until follow-up. She should return here to the emergency department if symptoms worsen. Impression Primary Impression: Shortness of breath Scribe Attestation The scribe's documentation has been prepared under my direction and personally reviewed by me in its entirety. I confirm that the note above accurately reflects all work, treatment, procedures, and medical decision making performed by me. Departure Information Referrals Carmelina Shelley D.O. (PCP) Patient Instructions [facility]
[2017-04-16] MEDS ORDERED: CHOL1000 PO (05:27)
[2017-04-16 06:05] LABS: BASO % 0.2 %; BASO ABS # 0.01 K/uL (0-0.2); EOS % 0.8 %; EOS ABS # 0.04 K/uL (0-0.5); HEMATOCRIT 39.2 % (37-47); HEMOGLOBIN 13.1 g/dL (12.0-16.0); IG# 0.02 K/uL (0.00-0.02); LYMPH % 30.9 %; MEAN CELL VOLUME 90.5 fL (80-100); MEAN CORPUSCULAR HEMOGLOBIN 30.3 pg (25-34); MEAN CORPUSCULAR HGB CONC 33.4 g/dl (32-36); MEAN PLATELET VOLUME 10.4 fL (7.4-10.4); MONO % 13.2 %; MONO ABS # 0.64 K/uL (0.11-0.59); NEUT % 54.5 %; NEUT ABS # 2.65 K/uL (1.4-6.5); PLATELET COUNT 154 K/uL (130-400); RED CELL DISTRIBUTION WIDTH CV 13.1 % (11.5-14.5); WHITE BLOOD COUNT 4.86 K/uL (4.8-10.8)
[2017-04-16 06:18] LABS: BLOOD UREA NITROGEN 20 mg/dl (7-18); CALCIUM 9.2 mg/dl (8.5-10.1); CARBON DIOXIDE 26 mmol/L (21-32); CREATININE 0.88 mg/dl (0.60-1.20); GLUCOSE 102 mg/dl (70-99); POTASSIUM 4.1 mmol/L (3.5-5.1); SODIUM 140 mmol/L (136-145)
[2017-04-16 06:19] LABS: INFLUENZA B ANTIGEN Neg for Influ B (NEG)
--- NOTE | 2017-04-16 06:20 | DIAGNOSTIC IMAGING REPORT ---
CHEST 2 VIEWS ROUTINE CLINICAL HISTORY: 77 years-old Female presenting with sob. TECHNIQUE: PA and lateral views of the chest were obtained. COMPARISON: 12/05/2016. FINDINGS: Atherosclerosis of the aortic arch. Cardiac silhouette normal in size. Prominent skin fold over the lateral left hemithorax. Lungs and pleural spaces clear. Osseous structures normal. Upper abdomen normal. IMPRESSION: 1. No acute cardiopulmonary disease. Electronically signed by: Matt Mclean M.D. 04/16/2017 6:19 AM Dictated Date/Time: 04/16/2017 6:18 AM
[2017-04-16 06:23] LABS: CKMB 0.9 ng/ml (0.5-3.6)
[2017-04-16 07:00] VITALS: O2SAT 98
[2017-04-16] MEDS ORDERED: OPTIRAY 320 IV PRN (07:15)
--- NOTE | 2017-04-16 08:35 | DIAGNOSTIC IMAGING REPORT ---
(CHEST FOR PE) ANGIO WITH CLINICAL HISTORY: 77 years-old Female presenting with recent pneumonia in November, intermittent cough and shortness of breath since then, current mucus production, no fever, difficulty with deep inspiration, clinical concern for pulmonary embolus. TECHNIQUE: Multidetector CT angiography of the chest was performed after administration of intravenous contrast. 3-D volumetric and/or maximum intensity projection (MIP) images were subsequently reconstructed for review. IV contrast: 93 mL of Optiray 320. A dose lowering technique was used consistent with the principles of ALARA (as low as reasonably achievable). COMPARISON: Chest x-ray performed earlier the same day. CT DOSE (mGy.cm): The estimated cumulative dose is 589.93 mGy.cm. FINDINGS: Manager Transition topogram: Cholecystectomy clips. Pulmonary vasculature: The study is adequate for assessment of the pulmonary vascular tree. No filling defect within the pulmonary arteries to suggest embolus. Main pulmonary artery is not enlarged. No flattening of the interventricular septum. No intracardiac filling defect. No reflux of contrast into the hepatic veins. Remaining chest: On soft tissue windows, subcentimeter nodule in the left thyroid lobe. Prominent bilateral hilar and mediastinal lymph nodes. The largest lymph nodes are in the precarinal region, measuring 11 mm in short axis, and subcarinal region, measuring 12 mm in the short axis. A subcentimeter prominent left clavicular lymph node is also noted. Atherosclerosis of the aorta. Normal heart size. Trace coronary artery calcification at the origin of the right main coronary artery. No pericardial or pleural effusion. Cholecystectomy clips. Prominence of bile ducts likely a reservoir effect in the post cholecystectomy state. On lung windows, mild mosaic attenuation most prominently in the upper lobes, suggestive of small airways disease. No focal infiltrate or nodule. Minimal dependent changes likely atelectasis. Trace nodularity along the left major fissure the level of the superior segment of the left lower lobe. Large airways patent. On bone windows, degenerative changes of the spine. IMPRESSION: 1. No evidence of pulmonary embolus. 2. Bilateral hilar and mediastinal lymphadenopathy. This is nonspecific is seen in the setting of sarcoidosis, lymphoma, or reactive lymphadenopathy secondary to reported prior pneumonia. However, subtle nodularity along the left major fissure could point to sarcoidosis as the etiology. Correlate clinically. 3. Small airways disease suggested by mild mosaic attenuation in the upper lobes. Electronically signed by: Matt Mclean M.D. 04/16/2017 8:34 AM Dictated Date/Time: 04/16/2017 8:25 AM
[2017-04-16 09:05] VITALS: BP 158/93; PULSE 74; O2SAT 95
== END 2017-04-16 09:16 | disposition home or self-care (01) ==
LOC: EDBD 04:54 → C.EDB 04:55
DX: R06.02 Shortness of breath (principal); R05 Cough; M79.606 Pain in leg, unspecified; G47.30 Sleep apnea, unspecified; N18.3 Chronic kidney disease, stage 3 (moderate); E78.5 Hyperlipidemia, unspecified; Z87.01 Personal history of pneumonia (recurrent); Z87.891 Personal history of nicotine dependence

== ENCOUNTER → 2017-04-19 | Day surgery (SDC) | payer OTHER ==
[~2017-04-19] VITALS: Ht 160 cm; Wt 101.0 kg
[2017-04-19] VITALS (7 sets, daily range): BP systolic 128–162; BP diastolic 77–88; PULSE 66–85; TEMP 36.7–37.3; O2SAT 93–96; Ht 160 cm; Wt 101.0 kg
[~2017-04-19] MED LIST changes: +CHOL1000 PO; -DXY100 PO; +FENTANYL CITRATE INJ 50 MCG/1 ML 2 ML VIAL IV ONE; +LACTATED RINGER'S 1000ML 1,000 ML IV SCH; +LIDOCAINE 4% INH SOLN 4 ML BTL TOP ONE; +LIDOCAINE HCL 2% LOCAL 50ML VIAL INSTIL ONE; +LIDOCAINE VISCOUS 2% 100ML TOP ONE; +MIDAZOLAM HCL 5 MG/ML 1 ML VIAL IV ONE; +ONDANSETRON INJ 2 MG/ML 2 ML VIAL IV ONE
--- NOTE | 2017-04-19 08:56 | History and Physical ---
History & Physical Date of Service Apr 19, 2017. History & Physical 77-year-old female presenting for bronchoscopic evaluation 77-year-old female presents the pulmonary office for continuation of care of cough post ER visit. Prior records reviewed. PMHx includes: CKD 3, hypertension, dyslipidemia, obstructive sleep apnea (untreated), GERD, spondylolisthesis, and former tobacco use ( 15-20 pack-year quit 2011). - No occupational exposures - Patient does report history of prior tuberculosis exposure with 2 aunts who were diagnosed with tuberculosis in the 1940s. 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 She states that people have always commented that she is huffing and puffing when she answers the phone after walking a short distance. She describes chronic symptoms of difficulty taking a deep breath. 11/19/2016 patient was seen in the ER with chills, rhinitis, pharyngitis, nausea/ vomiting and hypertension. Chest x-ray: patchy parenchymal infiltrate involving the LLL. She was discharged on Levaquin 750 x 5 days, albuterol inhaler and Phenergan. Was seen again 12/05/2016 with heart palpitations (felt 2/2 nebulized albuterol) as well as persistent DÍAZ, nonproductive cough, and intermittent wheeze. In the ER she was mildly hypoxia (89%-RA). Chest x-ray: resolution of LLL infiltrate. EKG & Edwardo: unremarkable. She was admitted and treated with additional IV antibiotics, steroids, supplemental O2 and bronchodilators with symptomatic improvement. She was seen by Pulmonary - Dr. Sweeney in consult in-patient. Post discharge initially she felt improved for approximately 1-2 weeks. She then noted progressive increase in cough, dyspnea, nasal gtt, and wheeze. She has been seen by ear nose and throat. CT of the chest 03/09/2017 large airway change consistent with tracheomalacia. No adenopathy. Mosaic attenuation Patient was seen in the emergency department 04/16/2017 after waking with acute symptoms of shortness of breath. She states that this has been going on for several months at this point. In the emergency department lab work was without leukocytosis or peripheral eosinophilia. D-dimer was elevated and therefore she underwent a CT angiogram (as of below). Cardiac enzymes and proBNP were all within normal limits. Influenza negative. CT angiogram was without any evidence of pulmonary embolism. There are bilateral hilar and mediastinal lymphadenopathy. There was subtle nodularity along the left major fissure with question of sarcoid per the radiology report. Large airways were patent. There were minimal dependent changes more consistent with atelectasis. The largest lymph node in the chest in the pre- carinal region measuring 11 mm in short axis. In the subcarinal region measures 12 minutes mm in the short axis. There is mosaic attenuation in the upper lobes suggestive of small airway disease as well. On exam/interview today patient reports that this is as she has been over the past several months. She has a raspy cough. She is no longer she acutely short of breath. She denies any fevers or chills. She denies any symptoms of wheeze or purulence. She does have an end expiratory loose upper airway wheeze audible on exam. Active Problems 1. Allergic rhinitis (J30.9) 2. Apnea, sleep (G47.30) 3. Arthritis (M19.90) 4. Cough (R05) 6. Lymphadenopathy (R59.1) 7. Osteoporosis (M81.0) 8. Postmenopausal status (Z78.0) 9. SOB (shortness of breath) (R06.02) 10. 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 History of Chronic Common Migraine (Without Aura) 2. History of Depression with anxiety (F41.8) 3. History of Gallbladder disease (K82.9) 4. History of Hypercholesterolemia (E78.00) 5. History of Spinal stenosis (M48.00) Surgical History 1. History of Cholecystectomy 2. History of Dilation And Curettage 3. History of Surgery 4. History of Tubal Ligation Family History 1. Family history of Thyroid Disorder Social History Denied: History of Alcohol Use (History) Denied: History of Current Smoker Current Meds 1. Montelukast Sodium 10 MG Oral Tablet; TAKE 1 TABLET AT BEDTIME; 2. Caltrate 600+D TABS; TAKE DIRECTED; 3. Fish Oil 1000 MG Oral Capsule; TAKE 1 CAPSULE DAILY; 4. Progesterone CREA; USE DIRECTED; 5. Vitamin D TABS; 1000 units/day; 6. Zyrtec TABS; TAKE 1 TABLET DAILY; 7. CeleXA TABS; 8. TraZODone HCl - 50 MG Oral Tablet; 9. Xanax 0.5 MG Oral Tablet; TAKE 1 TABLET DAILY NEEDED; 10. Simvastatin 40 MG Oral Tablet; 11. Neurontin 100 MG Oral Capsule; 12. Fish Oil CAPS; 13. Topamax 50 MG Oral Tablet; Take 1 tablet twice daily; Allergies 1. Codeine Derivatives 2. Percodan TABS Vitals Vital Signs Recorded: [id number] 02:25PM Blood Pressure: 134 / 82, RUE, Sitting Height: 5 ft 3 in Weight: 224 lb 7 oz BMI Calculated: 39.76 BSA Calculated: 2.03 Respiration: 14 O2 Saturation: 91, RA Temperature: 97.9 F Heart Rate: 82 Peak Flow.: 65, 60,60 Physical Exam Constitutional: Well developed, well nourished obese elderly female. No acute distress. Head: + facial symmetry Eyes: EOMi, PERRLA, no conjunctival injection Mouth: Mallampati IV. No erythema, exudate, or post nasal gtt Neck: Trachea midline. No adenopathy or masses. Circumference: 15.5" Respiratory: Non-labored respirations. Intermittent harsh cough on exam. end- expiratory wheeze best heard on the left apical (as where this has been heard previously. No rhonchi. No clubbing or cyanosis. Cardiovascular: RRR, no MRG. +2 radial pulses. <1s capillary refill. Abdomen: soft, active bowel sounds Integumentary: no rashes, or ecchymosis MSK/Extremities: Moving and developed symmetrically. No edema. No calf tenderness. Neurologic: A&O, data recall in-tact. Appropriate affect.
--- NOTE | 2017-04-19 10:07 | Pre Sedation Assessment ---
Pre Sedation Assessment General Date of Sedation: Apr 19, 2017. Vital Signs Past 12 Hours Date Time Temp Pulse Resp B/P (MAP) Pulse Ox O2 Delivery O2 Flow Rate FiO2 04/19/17 08:42 37.3 85 20 157/88 (111) 93 Room Air Review Cardiovascular: regular rate, rhythm, no edema, no gallop, no JVD, no murmur, normal peripheral pulses Lungs: chest non-tender, lungs clear, normal breath sounds, no respiratory distress, no accessory muscle use Pre-Sedation Airway Assessment Smoking Status: Former Smoker Hx of Sleep Apnea: Yes Hx of difficult intubation: No Short Thick Neck: Yes Thyro-mental Distance: > 3 Finger Breadths Oral Cavity: WNL Mallampati Classification: Class II ASA Classification: Class II Procedure Planning Contraindications for Sedation: None Current Medications Reviewed: Yes Notes The planned sedation has been discussed with the patient. Informed Consent was obtained. I have identified the patient, determined the appropriateness of sedation and have assessed the patient immediately prior to the procedure. All medicine(s) and interventions are by my order.
--- NOTE | 2017-04-19 10:55 | Bronchoscopy Procedure Note ---
Bronchoscopy Procedure Note Procedure: Bronchoscopy, conscious sedation, bronchial lavage lingula Consent: Obtained through the patient placed into the chart Pre-procedural diagnosis: Chronic cough Post-procedural diagnosis: Chronic cough Start time: 1034 End time: 1049 Total time: 15 minutes Analgesia: 2% liquid lidocaine: Via nebulizer 4% gel lidocaine: Via right naris 2% liquid lidocaine: Via bronchoscopy Sedation: Versed IV: 2 mg Fentanyl IV: 25 g Procedure: The Olympus video bronchoscope was used for this procedure and passed down through the right naris Right naris/posterior naris/posterior oropharynx: Anatomically within normal limits Glottis: Anatomically within normal limits Vocal cords: Proper abduction and abduction, anatomically within normal limits Subglottis: Anatomically within normal limits Trachea: Notable erythematous and raised posterior wall of the trachea. Approximately 2.5 cm, narrow band imaging within normal limits, Adriana: EDAC 70% . Off the left and right mainstem Right bronchial tree: Right mainstem bronchus: Anatomically within normal limits Right upper lobe: Anatomically within normal limits Bronchus intermedius: Anatomically within normal limits Right middle lobe: Anatomically within normal limits Right lower lobe: Anatomically within normal limits Findings: No significant findings noted Left bronchial tree: Left mainstem bronchus: EDAC of the left mainstem for approximately 3 cm Left upper lobe: Anatomically within normal limits Lingula: Anatomically within normal limits, mild mucous plugging Left lower lobe: Anatomically within normal limits Findings: No significant findings noted Bronchial alveolar lavage: Lingula EBL: None Complications: None Follow-up: ASU
--- NOTE | 2017-04-19 10:56 | Post Sedation Assessment ---
Post Sedation Assessment General Date of Sedation Apr 19, 2017. Vital Signs: Vital Signs Past 12 Hours Date Time Temp Pulse Resp B/P (MAP) Pulse Ox O2 Delivery O2 Flow Rate FiO2 04/19/17 10:49 71 20 146/83 95 Oxymask 10 04/19/17 10:44 74 12 149/94 94 Oxymask 10 04/19/17 10:39 76 15 144/95 96 Oxymask 6 04/19/17 10:34 71 20 164/100 96 Oxymask 6 04/19/17 10:25 76 26 169/93 98 Oxymask 6 04/19/17 08:42 37.3 85 20 157/88 (111) 93 Room Air Post Procedure Recovery Score Activity: (2) Moves 4 extremities * Respiration: (2) Deep breath/cough Circulation: (2) +/-20% PreAnes Value Consciousness: (2) Fully Awake Oxygen Saturation: (1) O2 needed for >90% Post Anesthesia Score: 9 Discharge Sedation Level of Care: Phase I Post Sedation Plan On clinical assessment, the patient appears to have tolerated the sedation without complications. Patient is recovering as anticipated. Patient will continue to be monitored by nursing and may be discharged when sedation discharge criteria are met per below protocol. Upon Completions of procedure and additional 15 minutes continue every 5 minute vital signs and the P.A.R. score; then discharge to a Phase I or Fast Track to Phase II per the following guidelines: * Discharge Patient to appropriate Phase II area if PAR is 8 or greater or return to pre- procedure baseline. The post - procedure orders will be as directed. * If PAR score is less than 8 or not return to pre-procedure baseline then patient will follow Phase I monitoring till PAR is reached for Phase II. The Phase I may be done in procedure room or may call to secure a Phase I area. * If naloxone or flumazenil are used for reversal, hold in Phase I for an additional 60 -120 minutes before discharge to Phase II. Please call the Sedation Physician to re-evaluate and complete post-note for discharge to Phase II area. Do NOT discharge from procedure sedation or Phase 1 until post- sedation evaluation note is complete by procedure /sedation MD Sedation Discharge Instructions to be given to the patient at discharge to home.
--- NOTE | 2017-04-19 10:58 | Discharge Instructions ---
Discharge Instructions Date of Service Apr 19, 2017. Admission Reason for Admission: Cough, Lymphadenopathy Discharge Discharge Diagnosis / Problem: chronic cough Discharge Goals Goal(s): Diagnostic testing Activity Recommendations Activity Limitations: resume your previous activity . Instructions / Follow-Up Instructions / Follow-Up Follow-up in the [facility] pulmonary division Current Hospital Diet Patient's current hospital diet: Discharge Diet Recommended Diet: Regular Diet Procedures Procedures Performed: BRONCHOSCOPY, conscious sedation, bronchial lavage of the lingula Pending Studies Studies pending at discharge: no Medical Emergencies . Who to Call and When: Medical Emergencies: If at any time you feel your situation is an emergency, please call 911 immediately. . Non-Emergent Contact Non-Emergency issues call your: Ticketer . . "Provider Documentation" section prepared by Rainer Nicholson. . VTE Core Measure Inpt VTE Proph given/why not?: Treatment not indicated
== END | disposition home or self-care (01) ==
LOC: C.ACU 07:40
PROVIDERS: ATTEND Internal Medicine Critical Care Medicine
DX: R05 Cough (principal); J39.8 Other specified diseases of upper respiratory tract; I12.9 Hypertensive chronic kidney disease with stage 1 through stage 4 chronic kidney disease, or unspecified chronic kidney disease; N18.3 Chronic kidney disease, stage 3 (moderate); E78.5 Hyperlipidemia, unspecified; G47.33 Obstructive sleep apnea (adult) (pediatric); K21.9 Gastro-esophageal reflux disease without esophagitis; M43.10 Spondylolisthesis, site unspecified; Z87.891 Personal history of nicotine dependence; M81.0 Age-related osteoporosis without current pathological fracture; Z79.899 Other long term (current) drug therapy

== ENCOUNTER → 2017-04-25 | Outpatient (CLI) | payer OTHER ==
[~2017-04-25] MED LIST changes: -FENTANYL CITRATE INJ 50 MCG/1 ML 2 ML VIAL IV ONE; -LACTATED RINGER'S 1000ML 1,000 ML IV SCH; -LIDOCAINE 4% INH SOLN 4 ML BTL TOP ONE; -LIDOCAINE HCL 2% LOCAL 50ML VIAL INSTIL ONE; -LIDOCAINE VISCOUS 2% 100ML TOP ONE; -MIDAZOLAM HCL 5 MG/ML 1 ML VIAL IV ONE; -ONDANSETRON INJ 2 MG/ML 2 ML VIAL IV ONE; -TYLOTC500 PO
--- NOTE | 2017-04-25 10:14 | DIAGNOSTIC IMAGING REPORT ---
FUSION CT SINUSES W/O HISTORY: ALLERGIC RHINITIS, SINUSITIS TECHNIQUE: Multiaxial CT images of the sinuses were performed and reformatted in the coronal plane without the use of intravenous contrast. Fusion CT protocol was also performed. COMPARISON STUDY: Sinus radiograph 03/22/2017. FINDINGS: The frontal sinuses, right ethmoid air cells, maxillary sinuses, and mastoid air cells are clear. Small retention cysts within the bilateral sphenoid sinuses. A single partially opacified left posterior ethmoid air cell. Minimal right nasal septal deviation anteriorly. The orbital floors and lamina papyracea are intact. The bilateral ostiomeatal units are patent. No fluid levels within the paranasal sinuses. The right anterior clinoid is partially pneumatized and the left anterior clinoid is pneumatized. The visualized brain parenchyma and orbits are unremarkable. IMPRESSION: 1. Minimal chronic sinus disease as described above. 2. No fluid levels within the paranasal sinuses. Electronically signed by: Basil Rodgers M.D. 04/25/2017 10:12 AM Dictated Date/Time: 04/25/2017 10:02 AM
== END | disposition home or self-care (01) ==
LOC: C.CTS 09:22
PROVIDERS: ATTEND Physician Assistant
DX: J30.9 Allergic rhinitis, unspecified (principal); R05 Cough; R06.02 Shortness of breath

== ENCOUNTER → 2017-05-16 | Outpatient (CLI) | payer OTHER | END | disposition home or self-care (01) | LOC: C.LAB1850 15:59 | PROVIDERS: ATTEND Internal Medicine Pulmonary Disease | DX: J39.8 Other specified diseases of upper respiratory tract (principal); R06.02 Shortness of breath; R05 Cough ==

== ENCOUNTER → 2017-06-13 | Outpatient (CLI) | payer OTHER ==
--- NOTE | 2017-06-16 14:56 | POLYSOMNOGRAPH REPORT ---
CLINICAL DATA: A 77-year-old female with a BMI of 39.2, referred by Shy Olivo and Dr. Nicholson, for evaluation of sleep apnea. She does have shortness of breath and a previous history of sleep apnea. She tried BiPAP, but had a difficult time tolerating it. She apparently snores very loudly. On the evening of 06/13/2017, a home sleep apnea test was performed using a [place] type 3 monitor. RECORDING RESULTS: Total recording time was 10 hours. The patient's monitoring time and estimated sleep time was 7.7 hours. RESPIRATORY DATA: Very severe sleep apnea was diagnosed. The JEROME was 57.9. There were 314 obstructive, 52 mixed, and 3 central apneic episodes. There were 74 hypopneic episodes. The longest respiratory event was 58 seconds. OXIMETRY DATA: Significant oxygen desaturation was seen. Oxygen nickolas was 62%. Mean saturation was 89%. Time below 89% was 191 minutes. HEART RATE DATA: Heart rates ranged from 64-81 beats per minute. SNORING DATA: Snoring was recorded throughout the night. IMPRESSION: Very severe sleep apnea/hypopnea with a respiratory event index of 57.9 with nocturnal hypoxemia. RECOMMENDATIONS: The patient may benefit from a repeat sleep study with CPAP/BiPAP. Clinical correlation is needed. NIGELD
== END | disposition home or self-care (01) ==
LOC: C.NEUR 09:41
PROVIDERS: ATTEND Physician Assistant
DX: G47.30 Sleep apnea, unspecified (principal)

== ENCOUNTER → 2017-07-07 | Outpatient (CLI) | payer OTHER ==
--- NOTE | 2017-07-08 19:01 | PAP/PSG TECHNICIAN REPORT ---
[facility] Pilot Captain Polysomnogram Report Study name: None Report date: 07/08/2017 Study date: 07/07/2017 Referring Physician: Shy Olivo PA-C, PA-C Name: MASON DUNN Interpreting Physician: Arnold Cedillo M.D. Date of : 1940 Pilot Captain: Miguelina Rushing, PSGT. Sex: Female Age: 77 StudyType: PSG Weight: 228 lbs Height: 77 years, Height 5' 3" Neck Circum:16 inches BMI: 40.38 Medications: Breo, Catrate 600+D, Celexa , EpiPen, Fish oil, Levalbuterol, Montelukast Sodium, Omeprazole, simvastatin, Trazadone 50 mg, Vit-D, Xanax 0.5 mg, Zyrtec. Patient History 77 yr. old female here for a titration sleep study. Patient had a in home SS and had an AHI of 58. Ess = 11, Neck = 16 inches Parameters Monitored NPSG: E1-M2, E2-M1, Fp1-M2, Fp2-M1, F3-M2, F4-M2, F4-M1, C3-M2, C4-M2, C4-M1, O1-M2, O2-M2, O2-M1, T3-M2, T4-M1, P3-M2, P4-M1, CHIN1, CHIN2, HR, EKG, Legs, PFLOW, SNOR, FLOW, CFLOW, Tidal Volume, THOR, ABDO, SpO2, PLTH, CPRESS, ETCO2 Wave, ETCO2, pH Sleep Architecture Sleep Stages Time at Lights Off 10:46:23 PM STAGES Time (min.) TST (%) Time at Lights On 6:00:23 AM Wake 87.0 -- Total Recording Time (TRT) 435.50 min. N1 52.5 15 Total Sleep Period (TSP) 390.0 min. N2 229.0 66 Total Sleep Time (TST) 346.5min. N3 0.0 0 Awake Time 89.0 min. REM 65.0 19 Wake after Sleep Onset 45.5 min. Sleep Efficiency (SE) 80 % Sleep Onset Latency (BRIDGRE) 42.0 min. Number of Stage 1 Shifts None Awakenings 16 Stage Changes 69 Number of REM periods 3 REM 65.0 19 REM Latency 104.5 min. NREM 281.5 81 Body Position Analysis Supine Right Left Side Prone Vertical Total Sleep Time (min.) 7.2 341.1 0.0 341.07 0.0 0.0 Total Sleep Time (%) 2% 98% 0% 98 0% N/A% Total Sleep Time REM (min.) 0.0 65.0 0.0 None 0.0 0.0 Total Sleep Time NREM (min.) 5.4 276.1 0.0 None 0.0 0.0 Intermittent Wake (min.) 1.8 85.2 0.0 None 0.0 0.0 Total Sleep Period (%) 2% None None None None None Arousals Myoclonus (PLM) * Events Count Index Events Count Index Spontaneous 89 15 Events Awake (PLMW) 3 2.1 Respiratory 21 3.6 Events Asleep w/ Arousal (PLMA) 16 2.8 PLM 15 3 Events Asleep w/o Arousal (PLMS) 151 26.1 Snoring 33 6 Total Asleep 167 28.9 Total 154 27 Total 170 24 Respiratory Analysis * CA OA MA CH H RERA Total Count 2 0 0 0 59 0 61 Index 0.3 0.0 0.0 0 10.2 0 10.6 Mean Duration 12.0 0.0 0.0 0.00 19.2 0.0 18.9 Longest Duration 12.9 0.0 0.0 0.00 0.0 0.0 38.3 Respiratory Event Summary Total Supine ~Supine Right Left Prone REM NREM Apneas Count 2 0 2 2 N/A N/A 2 0 Index 0.3 0 0 0.4 N/A N/A 2 0 Hypopneas (4% Desat) Count 59 1 58 58 N/A N/A 1 58 Index 10.2 11.1 10 10.2 N/A N/A 0.9 12.4 Apneas & All Hypopneas Count 61 1 60 60 N/A N/A 3 58 Index 10.6 11 11 11 N/A N/A 2.8 12.4 Respiratory Events (Vocational Counselor+All Hyp+RERA) Count 61 1 60 60 N/A N/A 3 58 Index 10.6 11 11 10.6 N/A N/A 2.8 12.4 Respiratory Related Arousal Count 21 1 21 21 N/A N/A 0 21 Index 3.6 0 4 4 N/A N/A 0 4 Snoring Analysis Supine Right Left Prone REM NREM Total Snore duration 20.3 min Snores count 14 730 N/A N/A 8 736 744 Snore mean duration 1.6 Sec Snores index 155 128 N/A N/A 7.4 156.9 128.8 TST with snoring (%) 5.9% Desaturation Event Summary: Minimum %SpO2 Event Count Mean/Min/Max Duration(sec.) Desaturation Index % Time In Bed > 90 125 28.2 / 5.8 / 60.0 27.3 63.9 86 - 90 38 25.2 / 8.3 / 56.3 16.0 33.2 81 - 85 0 N/A 0.0 2.8 76 - 80 0 N/A 0.0 0.2 71 - 75 0 N/A 0.0 0.0 66 - 70 0 N/A 0.0 0.0 61 - 65 0 N/A 0.0 0.0 56 - 60 0 N/A 0.0 0.0 51 - 55 0 N/A 0.0 0.0 < 50 0 N/A 0.0 0.0 Total REM NREM Awake <50% 0.0 min. 0.0 min. 0.0 min. 0.0 min. 51 - 60% 0.0 min. 0.0 min. 0.0 min. 0.0 min. 61 - 70% 0.0 min. 0.0 min. 0.0 min. 0.0 min. 71 - 80% 0.7 min. 0.0 min. 0.7 min. 0.0 min. 81 - 90% 154.5 min. 11.5 min. 104.1 min. 38.9 min. 91 - 100% 274.4 min. 53.5 min. 175.7 min. 45.2 min. Average 91 92 91 91 Minimum SpO2 75 85 75 83 Desaturation Event Index 19.9 9.2 28.6 0.0 # Desat. Events below 89% 89 4 85 0 Time(%) with Saturation below 89% 13.0 0.4 9.5 3.2 Time(min.) with Saturation below 89% 56.0 1.5 40.9 13.6 Heart Rate Analysis End Tidal CO2 Analysis Min (bpm) Max (bpm) Average (bpm) TSP (mins) % of TSP Awake 40 161 73 Above 55 mmHg 0.0 0.0 NREM 57 83 68 50-55 mmHg 0.0 0.0 REM 61 80 71 45-50 mmHg 346.5 100.0 Overall 57 83 69 40-45 mmHg 0.0 0.0 35-40 mmHg 0.0 0.0 30-35 mmHg 0.0 0.0 Average ETCO2 0.0 Supplemental O2 Values Minimum O2 level: None Value Start Time End Time Pilot Captain Comments PAP Study: MS. Dunn slept in the right, and supine positions. No cardiac arrhythmia or PLM's noted. No bruxism noted. CPAP was initiated at +4 CMH2O and up-titrated to an optimal level of +13 CMH2O, which nearly eliminated all respiratory events and snoring. A [employer] Dream Wear , was used during titration, Ms. Dunn is a mouth breather. Ms. Dunn awoke to use the restroom zero times times during the night. Ms. Dunn stated, I did not sleep as well as I do when I am in my own bed. The final report will be interpreted and signed by a sleep physician. The completed physician report will then be placed in the patient medical record. Patient is claustrophobic , but is a mouth breather so dream wear seemed to work well for her. She never went into the supine position until 5 Am, she also achieved rem while supine. Patient would wake herself coughing often during the study. Therapy Event: Therapy (cm H20) 5 7 8 9 10 12 13 Total Time at Pressure (min.) 68.8 15.7 48.0 44.6 208.2 38.7 9.5 TST at Pressure (min.) 26.8 15.2 48.0 43.5 167.4 38.2 7.5 # Periods 1 1 1 1 1 1 1 Sleep Onset (min.) 42.0 0.0 0.0 0.0 5.4 0.0 0.0 REM Onset (min.) N/A N/A N/A 13.5 N/A 11.1 0.0 Sleep Efficiency % 38 96 100 97 80 98 78 Wakefulness (%) 61.1 3.2 0.0 2.5 19.6 1.3 21.1 Wakefulness (min.) 42.0 0.5 0.0 1.1 40.9 0.5 2.0 NREM 1 (%) 12.4 3.2 1.0 0.0 18.4 12.0 0.0 NREM 1 (min.) 8.5 0.5 0.5 0.0 38.4 4.6 0.0 NREM 2 (%) 26.6 93.6 99.0 30.2 61.9 15.5 0.0 NREM 2 (min.) 18.3 14.7 47.5 13.5 129.0 6.0 0.0 NREM 3 (%) 0.0 0.0 0.0 0.0 0.0 0.0 0.0 NREM 3 (min.) 0.0 0.0 0.0 0.0 0.0 0.0 0.0 REM (%) 0.0 0.0 0.0 67.3 0.0 71.2 78.9 REM (min.) 0.0 0.0 0.0 30.0 0.0 27.5 7.5 # Arousals 33 7 18 11 70 15 0 Arousal Index 74.0 27.6 22.5 15.2 25.1 23.6 0.0 # Snore 234 195 158 7 120 30 0 Snore Index 524.5 768.2 197.4 9.7 43.0 47.2 0.0 AHI 44.8 19.7 7.5 2.8 6.1 17.3 0.0 AHI Supine N/A N/A N/A N/A 11.1 N/A N/A AHI Non-Supine 44.8 19.7 7.5 2.8 5.9 17.3 0.0 NREM AHI 44.8 19.7 7.5 4.5 6.1 50.7 N/A REM AHI N/A N/A N/A 2.0 N/A 4.4 0.0 RDI 44.8 19.7 7.5 2.8 6.1 17.3 0.0 # Obstructive 0 0 0 0 0 0 0 # Central Ap 0 0 0 1 0 1 0 # Mixed 0 0 0 0 0 0 0 # Hypopneas 20 5 6 1 17 10 0 RERAS 0 0 0 0 0 0 0 Total Respiratory Events 20 5 6 2 17 11 0 Time Below SpO2 89.00% (min.) 13.1 6.6 11.4 1.2 8.2 1.8 0.0 Mean NREM SpO2 (%) 88 88 89 91 92 93 N/A Mean REM SpO2 (%) N/A N/A N/A 91 N/A 92 92 Mean Sleep SpO2 (%) 88 88 89 91 92 92 92 Min NREM SpO2 (%) 81 79 75 88 83 84 N/A Min REM SpO2 (%) N/A N/A N/A 85 N/A 86 90 Position Supine (min.) 0.0 0.0 0.0 0.0 5.4 0.0 0.0 Position Non-supine (min.) 26.8 15.2 48.0 43.5 161.9 38.2 7.5 LM Index Sleep 44.8 15.8 16.2 31.7 28.0 39.3 32.0 LM Index NREM 44.8 15.8 16.2 40.1 28.0 62.0 N/A LM Index REM N/A N/A N/A 28.0 N/A 30.5 32.0 Mean Heart Rate (bpm) 77 77 73 71 64 69 71 Min Heart Rate (bpm) 72 72 67 63 57 58 67
--- NOTE | 2017-07-11 07:57 | POLYSOMNOGRAPH REPORT ---
CLINICAL DATA: A 77-year-old female with BMI of 40.4 referred by Shy Olivo, myself and Dr. Shelley after a home sleep study showed severe RJ with an AHI of 58. SLEEP ARCHITECTURE: Total sleep period was 390 minutes. Total sleep time was 346.5 minutes divided between 281.5 minutes of non-REM sleep and 65 minutes of REM sleep. Sleep latency was delayed at 42 minutes. REM latency was 104.5 minutes. Sleep efficiency was 80%. Wake after sleep onset was 45.5 minutes. Sleep consisted of stage N1 15%, stage N2 66%, and REM 19%. AROUSAL DATA: One hundred and fifty four arousals were recorded for an index of 27 per hour, 89 were spontaneous. PLM DATA: 167 limb movements during sleep were recorded for an index of 28.9 per hour with an arousal index of 2.8 per hour. RESPIRATORY DATA: The AHI was 10.6. There were 2 central apneic episodes. The longest apneic episode was 12.9 seconds. There were 59 hypopneic episodes. The mean duration of hypopnea was 19.2 seconds. OXIMETRY DATA: Nocturnal hypoxemia was seen. Oxygen nickolas was 75% during non-REM sleep. Mean saturation was 91%. Time below 89% was 56 minutes. EKG: Heart rate ranged from 57-83 beats per minute. No arrhythmias were noted. ACCREDITED PHARMACY TECHNICIAN'S COMMENTS: The patient slept in the right and supine position. A [employer] DreamWear mask was used. The patient is a mouth breather. She is claustrophobic, but DreamWear mask seemed to work well for her. She did awaken herself sometimes during the study coughing. She was started on CPAP and was titrated up to 13 cm water pressure. At a final pressure setting, she slept for 7.5 minutes with an AHI of 0. IMPRESSION: Severe sleep apnea/hypopnea corrected with CPAP 13 cm water pressure using a Resp[employer]ics DreamWear mask. RECOMMENDATIONS: The patient should be started on the above noted treatment regimen and seen back in followup within 90 days to document efficiency and compliance. KELLI
== END | disposition home or self-care (01) ==
LOC: C.NEUR 21:00
PROVIDERS: ATTEND Internal Medicine Pulmonary Disease
DX: G47.30 Sleep apnea, unspecified (principal)

== ENCOUNTER → 2017-07-17 | Outpatient (CLI) | payer OTHER ==
[2017-07-17 14:29] LABS: HEMATOCRIT 39.6 % (37-47); HEMOGLOBIN 13.6 g/dL (12.0-16.0); MEAN CELL VOLUME 89.6 fL (80-100); MEAN CORPUSCULAR HEMOGLOBIN 30.8 pg (25-34); MEAN CORPUSCULAR HGB CONC 34.3 g/dl (32-36); MEAN PLATELET VOLUME 11.2 fL (7.4-10.4); PLATELET COUNT 168 K/uL (130-400); RED CELL DISTRIBUTION WIDTH CV 12.7 % (11.5-14.5); RED CELL DISTRIBUTION WIDTH SD 41.5 fL (36.4-46.3); WHITE BLOOD COUNT 6.22 K/uL (4.8-10.8)
[2017-07-18 01:31] LABS: RAPID PLASMA REAGIN NONREACTIVE (NONREACT)
[2017-07-20 10:35] LABS: ANA SCREEN TC 249X POSITIVE (NEGATIVE)
== END | disposition home or self-care (01) ==
LOC: C.LAB1850 11:24
PROVIDERS: ATTEND Ophthalmology
DX: R05 Cough (principal); H54.7 Unspecified visual loss

== ENCOUNTER → 2017-07-21 | Outpatient (CLI) | payer OTHER ==
--- NOTE | 2017-07-21 11:11 | DIAGNOSTIC IMAGING REPORT ---
ULTRASOUND OF THE CAROTID ARTERIES CLINICAL HISTORY: OPTIC NEUROPATHY COMPARISON STUDY: None. TECHNIQUE: Real-time, grayscale, and color Doppler sonography of the carotid arteries was performed. Imaging reviewed in the transverse and longitudinal planes. NASCET criteria was utilized for stenosis calcification. FINDINGS: There is minimal atherosclerotic plaque present . The peak systolic velocity within the right internal carotid artery is 117 cm/sec. The systolic velocity ratio of right internal to common carotid artery is 1.2. The peak systolic velocity within the left internal carotid artery is 83 cm/sec. The systolic velocity ratio left internal to common carotid artery is 0.8. Antegrade flow is seen in the vertebral arteries. The external carotid arteries are patent. Blood pressure in the right arm measured 130 mm/Hg. Blood pressure in the left arm measured 125 mm/Hg. IMPRESSION: No evidence of hemodynamically significant carotid stenosis. Electronically signed by: John Gonzalez M.D. 07/21/2017 11:10 AM Dictated Date/Time: 07/21/2017 11:09 AM
== END | disposition home or self-care (01) ==
LOC: C.ULTR 10:28
PROVIDERS: ATTEND Ophthalmology
DX: H54.7 Unspecified visual loss (principal)